=== PATIENT | male | born 1985 | race Caucasian/White ===

== ENCOUNTER 2018-03-03 02:00 | Emergency (ER) | payer OTHER, MEDICAID, SELFPAY ==
[2018-03-03 02:19] VITALS: BP 127/83; PULSE 70; RESP 16; TEMP 36.3; O2SAT 97; BMI 39.5
--- NOTE | 2018-03-03 02:51 | PC.NURSE ---
Attempted to place PIV in L hand. Unsuccessful placement, was able to obtain blood specimens but catheter would not advance. Dr. Terrell aware, agrees to PO hydration.
[2018-03-03 02:56] LABS: Add Manual Diff / Slide Review NO; Basophils Percent Auto 1.3 % (0-2); Eosinophils Percent Auto 1.4 % (2-4); Hematocrit 42.1 % (41-53); Hemoglobin 14.3 g/dL (13.5-17.5); Lymphocytes Percent Auto 31.8 % (25-40); Mean Corpuscular Hemoglobin 29.9 PG (26-34); Mean Corpuscular Volume 87.9 fL (80-100); Monocytes Percent Auto 8.5 % (3-14); Neutrophils Absolute Auto 5100 /uL (3000-5900); Platelet Count 198 X10^3/uL (150-400); Red Blood Cell Count 4.79 X10^6/uL (4.5-5.9); Red Cell Distribution Width 12.9 % (11.6-14.8)
--- NOTE | 2018-03-03 02:56 | ED.NAVMDI ---
HPI - Nausea/Vomiting/Diarrhea General Chief complaint: Nausea/Vomiting/Diarrhea Stated complaint: vomiting Time Seen by Provider: 03/03/18 02:16 Source: patient, RN notes reviewed and old records reviewed Mode of arrival: ambulatory Limitations: no limitations History of Present Illness HPI Narrative: Patient is a 32-year-old male who presents with his some vomiting. He says he vomited twice this evening once before work and once at work. He says sometimes when he stands up he gets really dizzy and lightheaded. He has not passed out he denies any chest pain or heart palpitations. He has no abdominal pain. He thinks he has been eating and drinking normally. He has not had any fever. MD complaint: nausea and vomiting Related Data Home Medications Medication Instructions Recorded Confirmed dextroamphetamine-amphetamine 20 mg PO BID #0 07/18/16 [Adderall] Previous Rx's Medication Instructions Recorded tramadol 1 mg PO Q4HP PRN #30 tab 02/16/17 varenicline [Chantix] 1 mg PO BID #60 tab 07/26/17 clonazepam 1 mg PO BIDP PRN #30 tab 09/05/17 ondansetron [Zofran ODT] 4 mg SUBLINGUAL Q6HP PRN #15 odt 09/18/17 trazodone 25 mg PO HS PRN #30 tab 10/26/17 ondansetron 4 mg PO Q6H PRN #10 tab 03/03/18 Allergies Allergy/AdvReac Type Severity Reaction Status Date / Time No Known Drug Allergies Allergy Verified 03/03/18 02:23 Review of Systems Review of Systems GENERAL: Denies chills, fatigue, malaise, fever, sweats, travel HEENT: Denies sinus pain, ear pain, sore throat, difficulty swallowing, neck pain RESPIRATORY: Denies dyspnea, cough, wheezing, hemoptysis, sputum. CARDIOVASCULAR: Denies chest pain, palpitations, orthopnea, edema GASTROINTESTINAL: See HPI : Denies dysuria, frequency, incontinence, hematuria, urinary retention, flank pain. MUSCULOSKELETAL: Denies weakness, joint pain, or bony pain SKIN: No rash, no erythema, no pruritus NEUROLOGIC: Denies weakness, dizziness, headache, numbness, change in speech, confusion PSYCHIATRIC: No concerning psychosocial issues. 12 point review of systems is negative except for those stated above and HPI All systems reviewed & are unremarkable except as noted in HPI and below PFSH Social History Smoking Status: Current every day smoker Exam Initial Vital Signs Initial Vital Signs: Vital Signs Temperature 97.4 F L 03/03/18 02:19 Pulse Rate 70 03/03/18 02:19 Respiratory Rate 16 03/03/18 02:19 Blood Pressure 127/83 H 03/03/18 02:19 Pulse Oximetry 97 03/03/18 02:19 GENERAL: Well-appearing, well-nourished and in no acute distress. HEENT: Head atraumatic,EOMI, pupils reactive CARDIOVASCULAR: Regular rate and rhythm without murmurs, rubs or gallops. RESPIRATORY: Breath sounds equal bilaterally, no wheezes rales or rhonchi. ABDOMEN: Soft, nontender. Normoactive bowel sounds all 4 quadrants. No guarding or rebound. EXTREMITIES: Normal range of motion, no clubbing or edema. Neurovascularly intact NEUROLOGICAL: Alert and oriented x4.Normal gait and speech. SKIN: Warm, dry, no laceration, no petechiae, no rashes or lesions. Course Orders Ordered: ED Orders 03/03/18 EKG-12 Lead Routine 03/03/18 02:51 Complete Blood Count AUTO DIFF Stat Comprehensive Metabolic Panel Stat Discontinued Medications Sodium Chloride (Normal Saline 0.9%) 500 mls @ 1,000 mls/hr IV BOLUS ONE Stop: 03/03/18 03:05 Vital Signs - 8 hr 03/03/18 02:19 Temperature 97.4 F L Pulse Rate 70 Respiratory Rate 16 Blood Pressure 127/83 H Pulse Oximetry 97 MDM - Nausea/Vomiting/Diarrhea Lab Data Attestation: I reviewed the patient's lab results. Result diagrams: 03/03/18 02:51 03/03/18 02:51 Lab Results 03/03/18 03/03/18 Range/Units 02:51 02:51 WBC 9.0 (4.5-11.0) X10^3/uL RBC 4.79 (4.5-5.9) X10^6/uL Hgb 14.3 (13.5-17.5) g/dL Hct 42.1 (41-53) % MCV 87.9 (80-100) fL MCH 29.9 (26-34) PG MCHC 34.0 (30-36) % RDW 12.9 (11.6-14.8) % Plt Count 198 (150-400) X10^3/uL Neut % (Auto) 57.0 (50-75) % Lymph % (Auto) 31.8 (25-40) % [place] % (Auto) 8.5 (3-14) % Eos % (Auto) 1.4 L (2-4) % Baso % (Auto) 1.3 (0-2) % Neut # (Auto) 5100 (8384-8714) /uL Sodium 142 (137-145) mmol/L Potassium 4.7 (3.4-5.1) mmol/L Chloride 110 H (98-107) mmol/L Carbon Dioxide 21 L (22-32) mmol/L BUN 14 (9-20) mg/dL Creatinine 0.80 (0.66-1.25) mg/dL Estimated GFR > 60.0 (>60) mL/min BUN/Creatinine Ratio 17.5 (6-22) Glucose 94 (70-100) mg/dL Calcium 9.1 (8.4-10.2) mg/dL Total Bilirubin 0.4 (0.2-1.3) mg/dL AST 30 (17-59) IU/L ALT 29 (21-72) IU/L Alkaline Phosphatase 47 (38-126) U/L Total Protein 6.8 (6.3-8.2) g/dL Albumin 3.8 (3.5-5.0) g/dL Globulin 3.0 (1.7-4.1) g/dL Albumin/Globulin Ratio 1.3 (1.0-2.8) ECG Data Attestation: I personally reviewed and interpreted this ECG as follows: Interpretation: Normal sinus rhythm rate 64 no acute ischemia no ST changes normal intervals MDM Narrative Medical decision making narrative: Patient is tolerating oral fluids. The no blood work at vitals within normal limits. He says he is feeling better just like to go home sleep. Discharge Plan Departure Patient Disposition: Home, Self-Care Clinical Impression: Vomiting Instructions: Nausea and Vomiting-Adult Activity Restrictions/Additional Instructions: 1) You have been diagnosed with nausea and vomiting 2) What to do: Drink frequent but small amounts of fluids. I recommend Gatorade or a Gatorade-like product, as it has small amounts of sugar and salts that improve fluid retention. 3) Take medications as directed 4) Follow up with your primary care provider in 2-3 days 5) Return to ER if you should have any new or worsening symptoms such as, unable to hold down fluids despite use of anti-nausea medications and the small volume oral rehydration strategy. Prescriptions: New ondansetron 4 mg tablet,disintegrating 4 mg PO Q6H PRN (Reason: nausea and vomiting) Qty: 10 RF: 0 No Action dextroamphetamine-amphetamine [Adderall] 20 MG tablet 20 mg PO BID Qty: 0 RF: 0 tramadol 50 MG tablet 1 mg PO Q4HP PRNQty: 30 RF: 3 varenicline [Chantix] 1 MG tablet 1 mg PO BID Qty: 60 RF: 2 clonazepam 0.5 MG tablet 1 mg PO BIDP PRNQty: 30 RF: 3 ondansetron [Zofran ODT] 4 MG tablet,disintegrating 4 mg Sublingual Q6HP PRNQty: 15 RF: 0 trazodone 50 MG tablet 25 mg PO HS PRNQty: 30 RF: 2 Referrals: [facility] [Provider Group] [facility] [Provider Group] [facility] [Provider Group] Stand Alone Forms: Work/School Restrictions
[2018-03-03 03:05] LABS: Alanine Aminotransferase 29 IU/L (21-72); Albumin 3.8 g/dL (3.5-5.0); Albumin Globulin Ratio 1.3 (1.0-2.8); Alkaline Phosphatase 47 U/L (38-126); Aspartate Aminotransferase 30 IU/L (17-59); BUN Creatinine Ratio 17.5 (6-22); Bilirubin Total 0.4 mg/dL (0.2-1.3); Blood Urea Nitrogen 14 mg/dL (9-20); Calcium 9.1 mg/dL (8.4-10.2); Carbon Dioxide 21 mmol/L (22-32); Chloride 110 mmol/L (98-107); Estimated Glomerular Filt Rate > 60.0 mL/min (>60); Glucose 94 mg/dL (70-100); Sodium 142 mmol/L (137-145); Total Protein 6.8 g/dL (6.3-8.2)
[2018-03-03 03:07] LABS: HEMOLYSIS 78 (0-50)
[2018-03-03 03:08] LABS: Potassium 4.7 mmol/L (3.4-5.1)
[2018-03-03 03:19] VITALS: BP 123/84; PULSE 58; RESP 18; TEMP 36.3; O2SAT 96
== END 2018-03-03 03:19 | disposition home or self-care (01) ==
PROVIDERS: Emergency Provider Emergency Medicine
DX: R11.10 Vomiting, unspecified (principal)
CPT/HCPCS: 80053; 82962; 85025; 93005; 99282; 99284

== ENCOUNTER 2018-03-30 17:19 | Emergency (ER) | payer OTHER, MEDICAID, SELFPAY ==
[2018-03-30 17:23] VITALS: BP 123/80; PULSE 66; RESP 20; TEMP 36.1; O2SAT 97; BMI 38.7
--- NOTE | 2018-03-30 18:58 | ED_ITS ---
HPI - Extremity Problem <Lien Mahmood PA-C - Last Filed: 03/30/18 21:49> General Chief complaint: Extremity Problem,Nontraumatic Stated complaint: RT FOOT PAIN Time Seen by Provider: 03/30/18 18:57 Source: patient Mode of arrival: ambulatory Limitations: no limitations History of Present Illness HPI Narrative: This 32-year-old male comes to the ED today complaining of 2 day history of right foot pain which is causing him to limp. He states that pain is only on the bottom of his foot, mostly in the back half of the foot, worse with bearing any weight or walking. Worse with initially standing after sitting for a bit. He denies any trauma at all, no wounds or punctures. He states the foot has not been swollen. He has not noted any swelling or fever. He has not had pain in the ankle or any joints. He is on his feet all night for work and does not think he can stand and walk all night due to the pain. Related Data Home Medications Medication Instructions Recorded Confirmed dextroamphetamine-amphetamine 20 mg PO BID #0 07/18/16 [Adderall] Previous Rx's Medication Instructions Recorded tramadol 1 mg PO Q4HP PRN #30 tab 02/16/17 varenicline [Chantix] 1 mg PO BID #60 tab 07/26/17 clonazepam 1 mg PO BIDP PRN #30 tab 09/05/17 ondansetron [Zofran ODT] 4 mg SUBLINGUAL Q6HP PRN #15 odt 09/18/17 trazodone 25 mg PO HS PRN #30 tab 10/26/17 ondansetron 4 mg PO Q6H PRN #10 tab 03/03/18 Allergies Allergy/AdvReac Type Severity Reaction Status Date / Time No Known Drug Allergies Allergy Verified 03/03/18 02:23 Review of Systems <Lien Mahmood PA-C - Last Filed: 03/30/18 21:49> Review of Systems All systems reviewed & are unremarkable except as noted in HPI and below Exam <Lien Mahmood PA-C - Last Filed: 03/30/18 21:49> Narrative Exam Narrative: GENERAL APPEARANCE: Patient sitting comfortably, in no distress. LUNGS: Clear to auscultation bilaterally. HEART: Rate and rhythm regular without murmur, normal S1 and S2, no S3 or S4. EXTREMITIES: No cyanosis, no edema, no calf tenderness MUSCULOSKELETAL: Right drawing frame tender to touch from the heel aponeurosis distal. No tenderness over the dorsum of the foot or bony prominences. No tenderness over the ankle. Full range of motion of the ankle and toes without tenderness nonweightbearing, however with weight-bearing he ambulates with a limp. Initial Vital Signs Initial Vital Signs: Vital Signs Temperature 97.0 F L 03/30/18 17:23 Pulse Rate 66 03/30/18 17:23 Respiratory Rate 20 03/30/18 17:23 Blood Pressure 123/80 H 03/30/18 17:23 Pulse Oximetry 97 03/30/18 17:23 <Dorian Michael DO - Last Filed: 03/31/18 05:00> Initial Vital Signs Initial Vital Signs: Vital Signs Temperature 97.0 F L 03/30/18 17:23 Pulse Rate 66 03/30/18 17:23 Respiratory Rate 20 03/30/18 17:23 Blood Pressure 123/80 H 03/30/18 17:23 Pulse Oximetry 97 03/30/18 17:23 Course <Lien Mahmood PA-C - Last Filed: 03/30/18 21:49> Vital Signs - 8 hr 03/30/18 17:23 03/30/18 19:35 Temperature 97.0 F L 97.3 F L Pulse Rate 66 59 L Respiratory Rate 20 18 Blood Pressure 123/80 H 135/88 H Pulse Oximetry 97 98 <Dorian Michael DO - Last Filed: 03/31/18 05:00> Vital Signs - 8 hr 03/30/18 17:23 03/30/18 19:35 Temperature 97.0 F L 97.3 F L Pulse Rate 66 59 L Respiratory Rate 20 18 Blood Pressure 123/80 H 135/88 H Pulse Oximetry 97 98 Discharge Plan Departure Patient Disposition: Home, Self-Care Clinical Impression: Plantar fasciitis Discharge Date/Time: 03/30/18 19:30 Interventions: ED Discharge Assessment Last Done: 03/30/18 19:35 Instructions: DI for Plantar Fasciitis Activity Restrictions/Additional Instructions: You can try taking ibuprofen every 8 hr for pain. See the website heelthatpain.CardiOx as they have very good exercises for this condition. To help with relief, you can roll your foot over a frozen water bottle or soup can, and also do the exercises you see on the web site. Their heel seats can be very helpful also, or you can try some insoles from the drugstore. Wear supportive shoes. This condition takes a long time to get better, so make sure you continue to treated. You can also see 1 of the podiatrists, I have given you their local number at [facility]. Prescriptions: No Action dextroamphetamine-amphetamine [Adderall] 20 MG tablet 20 mg PO BID Qty: 0 RF: 0 tramadol 50 MG tablet 1 mg PO Q4HP PRNQty: 30 RF: 3 varenicline [Chantix] 1 MG tablet 1 mg PO BID Qty: 60 RF: 2 clonazepam 0.5 MG tablet 1 mg PO BIDP PRNQty: 30 RF: 3 ondansetron [Zofran ODT] 4 MG tablet,disintegrating 4 mg Sublingual Q6HP PRNQty: 15 RF: 0 trazodone 50 MG tablet 25 mg PO HS PRNQty: 30 RF: 2 ondansetron 4 mg tablet,disintegrating 4 mg PO Q6H PRN (Reason: nausea and vomiting) Qty: 10 RF: 0 Referrals: [facility] [Provider Group] Stand Alone Forms: Work/School Restrictions <Dorian Michael DO - Last Filed: 03/31/18 05:00> [facility]ending Regla Attestation: I was immediately available in the department for consultation. Documentation has been reviewed. I agree with assessment and plan.
[2018-03-30 19:35] VITALS: BP 135/88; PULSE 59; RESP 18; TEMP 36.3; O2SAT 98
== END 2018-03-30 19:30 | disposition home or self-care (01) ==
PROVIDERS: Emergency Provider Internal Medicine
DX: M72.2 Plantar fascial fibromatosis (principal)
CPT/HCPCS: 99282; 99283

== ENCOUNTER 2018-06-02 11:11 | Emergency (ER) | payer OTHER, MEDICAID, SELFPAY ==
[2018-06-02 11:24] VITALS: BP 98/54; PULSE 88; RESP 16; TEMP 36.6; O2SAT 94
[2018-06-02] MEDS: ONDANSETRON 4 MG/2 ML INJ IV (11:58)
[2018-06-02 12:06] LABS: Add Manual Diff / Slide Review NO; Basophils Percent Auto 0.7 % (0-2); Eosinophils Percent Auto 0.8 % (2-4); Hematocrit 45.2 % (41-53); Hemoglobin 15.5 g/dL (13.5-17.5); Lymphocytes Percent Auto 31.7 % (25-40); Mean Corpuscular HGB Conc 34.2 % (30-36); Mean Corpuscular Volume 87.6 fL (80-100); Monocytes Percent Auto 6.6 % (3-14); Neutrophils Absolute Auto 6900 /uL (3000-5900); Neutrophils Percent Auto 60.2 % (50-75); Platelet Count 207 X10^3/uL (150-400); Red Blood Cell Count 5.15 X10^6/uL (4.5-5.9); Red Cell Distribution Width 13.2 % (11.6-14.8); White Blood Cell Count 11.5 X10^3/uL (4.5-11.0)
[2018-06-02 12:12] LABS: Prothrombin Time 10.9 SECONDS (10.1-12.7)
[2018-06-02 12:13] LABS: Alanine Aminotransferase 38 IU/L (21-72); Albumin 4.4 g/dL (3.5-5.0); Albumin Globulin Ratio 1.5 (1.0-2.8); Alkaline Phosphatase 61 U/L (38-126); Aspartate Aminotransferase 45 IU/L (17-59); BUN Creatinine Ratio 12.2 (6-22); Bilirubin Total 0.5 mg/dL (0.2-1.3); Blood Urea Nitrogen 11 mg/dL (9-20); Calcium 9.5 mg/dL (8.4-10.2); Carbon Dioxide 24 mmol/L (22-32); Chloride 107 mmol/L (98-107); Estimated Glomerular Filt Rate > 60.0 mL/min (>60); Glucose 131 mg/dL (70-100); Lipase 69 U/L (23-300); Potassium 4.5 mmol/L (3.4-5.1); Sodium 141 mmol/L (137-145); Total Protein 7.4 g/dL (6.3-8.2)
[2018-06-02 12:15] LABS: PTT Partial Thromboplastin Tim 26 SECONDS (26.4-36.2)
[2018-06-02 12:18] LABS: HEMOLYSIS 58 (0-50)
[2018-06-02 12:30] VITALS: BP 109/63; PULSE 63; RESP 16; O2SAT 99
--- NOTE | 2018-06-02 12:46 | ED_ITS ---
HPI - Nausea/Vomiting/Diarrhea <SP Vick - Last Filed: 06/02/18 16:17> General Chief complaint: Nausea/Vomiting/Diarrhea Stated complaint: nausea / vomiting. Time Seen by Provider: 06/02/18 12:16 Source: patient and family Mode of arrival: EMS Limitations: no limitations History of Present Illness HPI Narrative: Patient presents with chief complaint of generalized weakness, nausea and vomiting. Per report he was working his [employer], went outside to lay down and smoke a cigarette. He had sudden onset of fatigue, so his boss reportedly called 911. Per report patient was able to ambulate to the ambulance. He had sudden onset of nausea vomiting in the ambulance and vomited x1 largely. Upon my interview, patient is lying in bed on his side. He denies any abdominal pain, nausea vomiting diarrhea or fevers. He states his last bowel movement was yesterday. He denies any chest pain, shortness of breath, sore throat, ear pain. He does complains of severe fatigue and diffuse abdominal pain. His is at his bedside and notes that the patient has a very poor diet, eating on the [facility] in [facility]. She states he drinks soda by the [employer]. she states he has had approximately 6 Energy drinks so far today. Patient denies hitting his head, denies falls, denies trauma Related Data Home Medications Medication Instructions Recorded Confirmed dextroamphetamine-amphetamine 20 mg PO BID #0 07/18/16 06/03/18 [Adderall] Previous Rx's Medication Instructions Recorded tramadol 1 mg PO Q4HP PRN #30 tab 02/16/17 varenicline [Chantix] 1 mg PO BID #60 tab 07/26/17 clonazepam 1 mg PO BIDP PRN #30 tab 09/05/17 trazodone 25 mg PO HS PRN #30 tab 10/26/17 ondansetron 4 mg disintegrating 4 mg PO DAILY PRN #20 tab 06/03/18 tablet Allergies Allergy/AdvReac Type Severity Reaction Status Date / Time No Known Drug Allergies Allergy Verified 06/03/18 15:06 Review of Systems <SP Vick - Last Filed: 06/02/18 16:17> Review of Systems GENERAL: Denies chills, fatigue, malaise, fever, sweats. HEENT: Denies sinus pain, ear pain, sore throat, difficulty swallowing, dizziness. RESPIRATORY: Denies dyspnea, cough, wheezing, hemoptysis, sputum. CARDIOVASCULAR: Denies chest pain, palpitations, orthopnea, edema, GASTROINTESTINAL: see HPI : Denies dysuria, frequency, incontinence, hematuria, urinary retention. MUSCULOSKELETAL: denies weakness, joint pain, or bony pain SKIN: Denies rash, skin lesions, or other NEUROLOGIC: see HPI PSYCHIATRIC: No concerning psychosocial issues. 12 point review of systems is negative except for those stated above Exam <SHANNAN VickBC - Last Filed: 06/02/18 16:17> Narrative Exam Narrative: GENERAL: This is a well-nourished, well-developed patient, in mild distress. HEAD: Atraumatic. Normocephalic. No temporal or scalp tenderness. EYES: Pupils equal round and reactive. Extraocular motions intact. No scleral icterus. No injection or drainage. ENT: Nose without bleeding, purulent drainage or septal hematoma. Throat without erythema, tonsillar hypertrophy or exudate. Uvula midline. Airway patent. NECK: Trachea midline. No JVD or lymphadenopathy. Supple, nontender, no meningeal signs. CARDIOVASCULAR: Regular rate and rhythm without murmurs, gallops, or rubs. RESPIRATORY: Clear to auscultation. Breath sounds equal bilaterally. No wheezes , rales, or rhonchi. GASTROINTESTINAL: Abdomen soft Obese, diffusely tender, nondistended. No hepato-splenomegaly, or palpable masses. No guarding. active bowel sounds all quadrants. No rigidity. EXTREMITIES: No clubbing, cyanosis, or edema. No joint tenderness, effusion, or edema noted. BACK: Nontender without deformity or crepitance. No flank tenderness. NEURO: lethargic. Ox3. SKIN: No rash or erythema. Initial Vital Signs Initial Vital Signs: Vital Signs Temperature 97.8 F 06/02/18 11:24 Pulse Rate 88 06/02/18 11:24 Respiratory Rate 16 06/02/18 11:24 Blood Pressure 98/54 L 06/02/18 11:24 Pulse Oximetry 94 06/02/18 11:24 <Monika Gill DO - Last Filed: 06/06/18 18:59> Initial Vital Signs Initial Vital Signs: Vital Signs Temperature 97.8 F 06/02/18 11:24 Pulse Rate 88 06/02/18 11:24 Respiratory Rate 16 06/02/18 11:24 Blood Pressure 98/54 L 06/02/18 11:24 Pulse Oximetry 94 06/02/18 11:24 Course <KYLE Vick-BC - Last Filed: 06/02/18 16:17> Orders Ordered: Discontinued Medications Sodium Chloride (Normal Saline 0.9%) 1,000 mls @ 1,000 mls/hr IV BOLUS ONE Stop: 06/02/18 13:37 Last Infusion: 06/02/18 13:53 Dose: 0 mls/hr Admin: 06/02/18 12:58 Dose: 1,000 mls/hr Sodium Chloride (Normal Saline 0.9%) 1,000 mls @ 1,000 mls/hr IV BOLUS ONE Stop: 06/02/18 14:42 Last Infusion: 06/02/18 15:06 Dose: 0 mls/hr Admin: 06/02/18 13:53 Dose: 1,000 mls/hr Ondansetron HCl (Zofran) 4 mg IV NOW ONE Stop: 06/02/18 11:38 Last Admin: 06/02/18 11:58 Dose: 4 mg Reevaluation(s) Reevaluation #1: Patient states he is feeling much better. States his abdomen is feeling much better. no pain to abd palpation. Time: 13:30 Reevaluation #2: Patient is steady to ambulate. Out of bed to bathroom here states he is feeling much better wants to go home. Patient declines nausea medication upon discharge. Time: 14:45 Vital Signs - 8 hr 06/02/18 11:24 06/02/18 12:30 06/02/18 13:30 Temperature 97.8 F Pulse Rate 88 63 58 L Respiratory Rate 16 16 Blood Pressure 98/54 L Blood Pressure [Right Arm] 109/63 92/48 L Pulse Oximetry 94 99 96 06/02/18 14:35 Temperature Pulse Rate 79 Respiratory Rate Blood Pressure Blood Pressure [Right Arm] 117/66 Pulse Oximetry 98 <Monika Gill DO - Last Filed: 06/06/18 18:59> Orders Ordered: Discontinued Medications Sodium Chloride (Normal Saline 0.9%) 1,000 mls @ 1,000 mls/hr IV BOLUS ONE Stop: 06/02/18 13:37 Last Infusion: 06/02/18 13:53 Dose: 0 mls/hr Admin: 06/02/18 12:58 Dose: 1,000 mls/hr Sodium Chloride (Normal Saline 0.9%) 1,000 mls @ 1,000 mls/hr IV BOLUS ONE Stop: 06/02/18 14:42 Last Infusion: 06/02/18 15:06 Dose: 0 mls/hr Admin: 06/02/18 13:53 Dose: 1,000 mls/hr Ondansetron HCl (Zofran) 4 mg IV NOW ONE Stop: 06/02/18 11:38 Last Admin: 06/02/18 11:58 Dose: 4 mg Vital Signs - 8 hr 06/02/18 11:24 06/02/18 12:30 06/02/18 13:30 Temperature 97.8 F Pulse Rate 88 63 58 L Respiratory Rate 16 16 Blood Pressure 98/54 L Blood Pressure [Right Arm] 109/63 92/48 L Pulse Oximetry 94 99 96 06/02/18 14:35 Temperature Pulse Rate 79 Respiratory Rate Blood Pressure Blood Pressure [Right Arm] 117/66 Pulse Oximetry 98 MDM - Nausea/Vomiting/Diarrhea <KYLE Vick-BC - Last Filed: 06/02/18 16:17> Lab Data Result diagrams: 06/02/18 11:55 06/02/18 11:55 Lab Results 06/02/18 06/02/18 06/02/18 Range/Units 11:55 11:55 11:55 WBC 11.5 H (4.5-11.0) X10^3/uL RBC 5.15 (4.5-5.9) X10^6/uL Hgb 15.5 (13.5-17.5) g/dL Hct 45.2 (41-53) % MCV 87.6 (80-100) fL MCH 30.0 (26-34) PG MCHC 34.2 (30-36) % RDW 13.2 (11.6-14.8) % Plt Count 207 (150-400) X10^3/uL Neut % (Auto) 60.2 (50-75) % Lymph % (Auto) 31.7 (25-40) % [place] % (Auto) 6.6 (3-14) % Eos % (Auto) 0.8 L (2-4) % Baso % (Auto) 0.7 (0-2) % Neut # (Auto) 6900 H (1616-8981) /uL PT 10.9 (10.1-12.7) SECONDS INR 1.0 (0.9-1.3) APTT 26 L (26.4-36.2) SECONDS Sodium 141 (137-145) mmol/L Potassium 4.5 (3.4-5.1) mmol/L Chloride 107 (98-107) mmol/L Carbon Dioxide 24 (22-32) mmol/L BUN 11 (9-20) mg/dL Creatinine 0.90 (0.66-1.25) mg/dL Estimated GFR > 60.0 (>60) mL/min BUN/Creatinine Ratio 12.2 (6-22) Glucose 131 H (70-100) mg/dL Calcium 9.5 (8.4-10.2) mg/dL Total Bilirubin 0.5 (0.2-1.3) mg/dL AST 45 (17-59) IU/L ALT 38 (21-72) IU/L Alkaline Phosphatase 61 (38-126) U/L Total Protein 7.4 (6.3-8.2) g/dL Albumin 4.4 (3.5-5.0) g/dL Globulin 3.0 (1.7-4.1) g/dL Albumin/Globulin Ratio 1.5 (1.0-2.8) Lipase 69 (23-300) U/L Urine Dip Bedside Urine Glucose Negative Bedside Urine Bilirubin - Negative Bedside Urine Ketone - Negative Urine Specific [place] 1.020 Bedside Urine Occult Blood - Negative Bedside Urine pH 6.0 Bedside Urine Protein - Negative Bedside Urine Urobilinogen - Negative Bedside Urine Nitrite - Negative Bedside Urine Leukocytes - Negative Esterase MDM Narrative Medical decision making narrative: Patient presents with chief complaint of fatigue, sudden onset of nausea and vomiting. His labs are grossly normal emergency department. He felt much better after 2 L of normal saline being infused. His abdominal exam is within normal limits and his vital signs are hemodynamically stable. I discussed at length healthy lifestyle including less energy drinks and eating healthy foods. I offered the patient nausea medication upon discharge, but he declined. He did ask for a work note which I gave him. Discussed at length return precautions to the emergency department including fever, syncope, sudden abdominal pain except her. Patient under questions or concerns upon discharge and stated understanding of all instructions. <Monika Shepherd Jairo, - Last Filed: 06/06/18 18:59> Lab Data Lab Results 06/02/18 06/02/18 06/02/18 Range/Units 11:55 11:55 11:55 WBC 11.5 H (4.5-11.0) X10^3/uL RBC 5.15 (4.5-5.9) X10^6/uL Hgb 15.5 (13.5-17.5) g/dL Hct 45.2 (41-53) % MCV 87.6 (80-100) fL MCH 30.0 (26-34) PG MCHC 34.2 (30-36) % RDW 13.2 (11.6-14.8) % Plt Count 207 (150-400) X10^3/uL Neut % (Auto) 60.2 (50-75) % Lymph % (Auto) 31.7 (25-40) % [place] % (Auto) 6.6 (3-14) % Eos % (Auto) 0.8 L (2-4) % Baso % (Auto) 0.7 (0-2) % Neut # (Auto) 6900 H (1714-5322) /uL PT 10.9 (10.1-12.7) SECONDS INR 1.0 (0.9-1.3) APTT 26 L (26.4-36.2) SECONDS Sodium 141 (137-145) mmol/L Potassium 4.5 (3.4-5.1) mmol/L Chloride 107 (98-107) mmol/L Carbon Dioxide 24 (22-32) mmol/L BUN 11 (9-20) mg/dL Creatinine 0.90 (0.66-1.25) mg/dL Estimated GFR > 60.0 (>60) mL/min BUN/Creatinine Ratio 12.2 (6-22) Glucose 131 H (70-100) mg/dL Calcium 9.5 (8.4-10.2) mg/dL Total Bilirubin 0.5 (0.2-1.3) mg/dL AST 45 (17-59) IU/L ALT 38 (21-72) IU/L Alkaline Phosphatase 61 (38-126) U/L Total Protein 7.4 (6.3-8.2) g/dL Albumin 4.4 (3.5-5.0) g/dL Globulin 3.0 (1.7-4.1) g/dL Albumin/Globulin Ratio 1.5 (1.0-2.8) Lipase 69 (23-300) U/L Urine Dip Bedside Urine Glucose Negative Bedside Urine Bilirubin - Negative Bedside Urine Ketone - Negative Urine Specific [place] 1.020 Bedside Urine Occult Blood - Negative Bedside Urine pH 6.0 Bedside Urine Protein - Negative Bedside Urine Urobilinogen - Negative Bedside Urine Nitrite - Negative Bedside Urine Leukocytes - Negative Esterase Discharge Plan Departure Patient Disposition: Home Clinical Impression: Nausea & vomiting, Fatigue Discharge Date/Time: 06/02/18 15:40 Interventions: ED Discharge Assessment Last Done: 06/02/18 15:39 Instructions: DI for Fatigue, DI for Nausea -- Adult, DI for Vomiting -- Adult Activity Restrictions/Additional Instructions: Your lab work came back grossly normal today. Please follow-up with primary care provider if needed or not feeling any better. I have given you few days off of work. you have declined a nausea prescription today. I highly suggest a healthy diet, drinking water, not drinking as many energy drinks. Please come back to the emergency department if needed. Prescriptions: No Action ondansetron 4 mg tablet,disintegrating 4 mg PO DAILY PRN (Reason: nausea and vomiting) Qty: 20 RF: 0 dextroamphetamine-amphetamine [Adderall] 20 MG tablet 20 mg PO BID Qty: 0 RF: 0 tramadol 50 MG tablet 1 mg PO Q4HP PRNQty: 30 RF: 3 varenicline [Chantix] 1 MG tablet 1 mg PO BID Qty: 60 RF: 2 clonazepam 0.5 MG tablet 1 mg PO BIDP PRNQty: 30 RF: 3 trazodone 50 MG tablet 25 mg PO HS PRNQty: 30 RF: 2 Stand Alone Forms: Work/School Restrictions <Monika Gill DO - Last Filed: 06/06/18 18:59> Cosign ED Attending Cosmuature Attestation: I was immediately available in the department for consultation. This documentation has been reviewed and I agree with assessment and plan. Supervised by Monika Gill DO
[2018-06-02] MEDS: SODIUM CHLORIDE 0.9% 1,000 ML 1000 ML IV ×2 (12:58→13:53)
[2018-06-02 13:30] VITALS: BP 92/48; PULSE 58; O2SAT 96
[2018-06-02 14:35] VITALS: BP 117/66; PULSE 79; O2SAT 98
== END 2018-06-02 15:40 | disposition home or self-care (01) ==
PROVIDERS: Emergency Medicine; Emergency Provider Nurse Practitioner Family
DX: R11.2 Nausea with vomiting, unspecified (principal); R53.83 Other fatigue
CPT/HCPCS: 36591; 80053; 81003; 83690; 85025; 85610; 85730; 96361; 96374; 99283; 99284; J2405

== ENCOUNTER 2018-12-16 04:14 | Emergency (ER) | payer OTHER, MEDICAID, SELFPAY ==
--- NOTE | 2018-12-16 04:40 | ED.NECK ---
HPI - Neck Pain/Injury General Chief Complaint: Neck Pain/Injury Stated Complaint: neck pain through shoulder hurts to turn neck Time Seen by Provider: 12/16/18 04:18 Source: patient Mode of arrival: ambulatory Limitations: no limitations History of Present Illness HPI Narrative: The patient is a 33-year-old male who presents with neck pain on the right. He was moving a mattress yesterday he took ibuprofen when he fell to happen however he still has pain he is unable to move his neck or move lift his arm. He sometimes has some tingling and numbness in his right arm. MD complaint: neck pain and neck injury Onset (ago): day(s) Related Data Home Medications Medication Instructions Recorded Confirmed dextroamphetamine-amphetamine 20 mg PO BID #0 07/18/16 06/03/18 [Adderall] Previous Rx's Medication Instructions Recorded tramadol 1 mg PO Q4HP PRN #30 tab 02/16/17 varenicline [Chantix] 1 mg PO BID #60 tab 07/26/17 clonazepam 1 mg PO BIDP PRN #30 tab 09/05/17 trazodone 25 mg PO HS PRN #30 tab 10/26/17 ondansetron 4 mg disintegrating 4 mg PO DAILY PRN #20 tab 06/03/18 tablet cyclobenzaprine 5 mg PO TID PRN #10 tab 12/16/18 Allergies Allergy/AdvReac Type Severity Reaction Status Date / Time No Known Drug Allergies Allergy Verified 06/03/18 15:06 Review of Systems Review of Systems GENERAL: Denies chills, fatigue, malaise, fever, sweats, travel HEENT: Denies sinus pain, ear pain, sore throat, difficulty swallowing, neck pain RESPIRATORY: Denies dyspnea, cough, wheezing, hemoptysis, sputum. CARDIOVASCULAR: Denies chest pain, palpitations, orthopnea, edema GASTROINTESTINAL: Denies nausea, vomiting, abdominal pain, diarrhea, constipation, melena. : Denies dysuria, frequency, incontinence, hematuria, urinary retention, flank pain. MUSCULOSKELETAL: See HPI SKIN: No rash, no erythema, no pruritus NEUROLOGIC: Denies weakness, dizziness, headache, numbness, change in speech, confusion PSYCHIATRIC: No concerning psychosocial issues. 12 point review of systems is negative except for those stated above and HPI [facility] Medical History (Updated 12/16/18 @ 04:54 by Neena Terrell DO) ADHD (Chronic) Social History Smoking Status: Current every day smoker Social History Smoking Status: Current every day smoker Exam Initial Vital Signs Initial Vital Signs: Vital Signs Temperature 97.7 F 12/16/18 04:51 Pulse Rate 74 12/16/18 04:51 Respiratory Rate 14 12/16/18 04:51 Blood Pressure 134/90 12/16/18 04:51 Pulse Oximetry 96 12/16/18 04:51 GENERAL: [Well-appearing, well-nourished] and in [no acute] distress. HEENT: Head atraumatic,EOMI, pupils reactive, NECK: No vertebral tenderness he is tender on the paraspinal muscles right side CARDIOVASCULAR: Regular rate and rhythm without murmurs, rubs or gallops. RESPIRATORY: Breath sounds equal bilaterally, no wheezes rales or rhonchi. EXTREMITIES: Normal range of motion, no clubbing or edema. Neurovascularly intact NEUROLOGICAL: Alert and oriented x4.Normal gait and speech. Cranial nerves II through XII grossly intact. 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 Course Orders Ordered: Discontinued Medications Al Hydrox/Mg Hydrox/Simethicone 20 ml/ Lidocaine HCl 15 ml 0 ml PO NOW ONE Stop: 12/16/18 05:33 Cyclobenzaprine HCl (Flexeril 10 Mg Prepack) 1 bottle MISC SEEINSTR ONE Stop: 12/16/18 04:48 Last Admin: 12/16/18 05:00 Dose: 1 bottle Ketorolac Tromethamine (Toradol) 60 mg IM NOW ONE Stop: 12/16/18 04:48 Last Admin: 12/16/18 04:59 Dose: 60 mg Vital Signs - 8 hr 12/16/18 04:51 12/16/18 05:34 Temperature 97.7 F Pulse Rate 74 72 Respiratory Rate 14 15 Blood Pressure 134/90 123/90 Pulse Oximetry 96 99 Discharge Plan Departure Patient Disposition: Home Clinical Impression: Cervical strain Qualifiers: Encounter type: initial encounter Qualified Code(s): S16.1XXA - Strain of muscle, fascia and tendon at neck level, initial encounter Discharge Date/Time: 12/16/18 05:35 Interventions: ED Discharge Assessment Last Done: 12/16/18 05:34 Instructions: DI for Neck Sprain Activity Restrictions/Additional Instructions: *You have been diagnosed with cervical strain *What to do: Increase activity as tolerated. Light stretching encouraged. Heating *Continue to take medications as directed Ibuprofen 800 mg every 8 hours for 1 week if needed for pain Flexeril 5 mg every 8 hours if needed for muscle spasm *Follow up with your primary care provider in 2-3 days --> sent to [facility] *Return to ER if you should have increasing neck pain, numbness, tingling or any new, worsening or concerning symptoms Prescriptions: New cyclobenzaprine 5 mg tablet 5 mg PO TID PRN (Reason: muscle spasm) Qty: 10 RF: 0 No Action ondansetron 4 mg tablet,disintegrating 4 mg PO DAILY PRN (Reason: nausea and vomiting) Qty: 20 RF: 0 dextroamphetamine-amphetamine [Adderall] 20 MG tablet 20 mg PO BID Qty: 0 RF: 0 tramadol 50 MG tablet 1 mg PO Q4HP PRNQty: 30 RF: 3 varenicline [Chantix] 1 MG tablet 1 mg PO BID Qty: 60 RF: 2 clonazepam 0.5 MG tablet 1 mg PO BIDP PRNQty: 30 RF: 3 trazodone 50 MG tablet 25 mg PO HS PRNQty: 30 RF: 2 Stand Alone Forms: Work Release Note
[2018-12-16 04:51] VITALS: BP 134/90; PULSE 74; RESP 14; TEMP 36.5; O2SAT 96; BMI 39.5
[2018-12-16] MEDS: KETOROLAC 60 MG/2 ML VIAL IM (04:59)
[2018-12-16] MEDS: CYCLOBENZAPRINE 10 MG PREPACK 1 BOTTLE MISC (05:00)
[2018-12-16 05:34] VITALS: BP 123/90; PULSE 72; RESP 15; O2SAT 99
== END 2018-12-16 05:35 | disposition home or self-care (01) ==
PROVIDERS: Emergency Provider Emergency Medicine
DX: S16.1XXA Strain of muscle, fascia and tendon at neck level, initial encounter (principal); M25.511 Pain in right shoulder; R20.0 Anesthesia of skin
CPT/HCPCS: 96372; 99282; 99283; J1885

== ENCOUNTER 2018-12-20 04:39 | Emergency (ER) | payer OTHER, MEDICAID, SELFPAY ==
[2018-12-20 04:48] VITALS: BP 118/80; PULSE 76; RESP 18; TEMP 36.6; O2SAT 98; BMI 39.5
--- NOTE | 2018-12-20 04:50 | ED_ITS ---
HPI - Abdominal Pain General Chief Complaint: Nausea/Vomiting/Diarrhea Stated Complaint: NAUSEA/COLD SWEATS X1 DAY Time Seen by Provider: 12/20/18 04:45 Source: patient and old records reviewed Mode of arrival: ambulatory Limitations: no limitations History of Present Illness HPI narrative: Patient is a 33-year-old male who presents with some nausea and abdominal discomfort. He says he was doing well yesterday this morning he woke up feeling nauseous this morning. He denies vomiting. feeling like he is going to have diarrhea has not actually had any bowel movement. Has some increased abdominal sounds but no real pain. He has not had any fever. He has actually seen evaluated here just the other day for some shoulder and neck strain. He has not taken any ibuprofen since noon yesterday he says that is overall feeling better. He is no longer taking the Flexeril either. MD complaint: abdominal pain Location: diffuse Related Data Home Medications Medication Instructions Recorded Confirmed dextroamphetamine-amphetamine 20 mg PO BID #0 07/18/16 06/03/18 [Adderall] Previous Rx's Medication Instructions Recorded tramadol 1 mg PO Q4HP PRN #30 tab 02/16/17 varenicline [Chantix] 1 mg PO BID #60 tab 07/26/17 clonazepam 1 mg PO BIDP PRN #30 tab 09/05/17 trazodone 25 mg PO HS PRN #30 tab 10/26/17 ondansetron 4 mg disintegrating 4 mg PO DAILY PRN #20 tab 06/03/18 tablet cyclobenzaprine 5 mg PO TID PRN #10 tab 12/16/18 ondansetron 4 mg PO Q6-8H PRN #10 tab 12/20/18 Allergies Allergy/AdvReac Type Severity Reaction Status Date / Time No Known Drug Allergies Allergy Verified 06/03/18 15:06 Review of Systems Review of Systems GENERAL: Denies chills, fatigue, malaise, fever, sweats, travel HEENT: Denies sinus pain, ear pain, sore throat, difficulty swallowing, neck pain RESPIRATORY: Denies dyspnea, cough, wheezing, hemoptysis, sputum. CARDIOVASCULAR: Denies chest pain, palpitations, orthopnea, edema GASTROINTESTINAL: See HPI : Denies dysuria, frequency, incontinence, hematuria, urinary retention, flank pain. MUSCULOSKELETAL: Shoulder and neck pain improving, see HPI SKIN: No rash, no erythema, no pruritus NEUROLOGIC: Denies weakness, dizziness, headache, numbness, change in speech, confusion PSYCHIATRIC: No concerning psychosocial issues. 12 point review of systems is negative except for those stated above and HPI [facility] Medical History ADHD (Chronic) Social History Smoking Status: Current every day smoker Social History Smoking Status: Current every day smoker Exam Initial Vital Signs Initial Vital Signs: Vital Signs Temperature 98 F 12/20/18 04:48 Pulse Rate 76 12/20/18 04:48 Respiratory Rate 18 12/20/18 04:48 Blood Pressure 118/80 12/20/18 04:48 Pulse Oximetry 98 12/20/18 04:48 GENERAL: Well-appearing, well-nourished and in no acute distress. HEENT: Head atraumatic,EOMI, pupils reactive, face symmetric, moist mucous membranes, neck is supple no meningeal signs CARDIOVASCULAR: Regular rate and rhythm without murmurs, rubs or gallops. RESPIRATORY: Breath sounds equal bilaterally, no wheezes rales or rhonchi. ABDOMEN: Soft, nontender. Normoactive bowel sounds all 4 quadrants. No guarding or rebound. EXTREMITIES: Normal range of motion, no clubbing or edema. Neurovascularly intact NEUROLOGICAL: Alert and oriented x4.Normal gait and speech. Cranial nerves II through XII grossly intact. SKIN: Warm, dry, no laceration, no petechiae, no rashes or lesions. Course Orders Ordered: ED Orders 12/20/18 05:00 Complete Blood Count AUTO DIFF Stat Comprehensive Metabolic Panel Stat Lipase Stat Discontinued Medications Ketorolac Tromethamine (Toradol) 30 mg IV NOW ONE Stop: 12/20/18 04:51 Last Admin: 12/20/18 05:04 Dose: 30 mg Ondansetron HCl (Zofran) 4 mg IV NOW ONE Stop: 12/20/18 04:51 Last Admin: 12/20/18 05:03 Dose: 4 mg Vital Signs - 8 hr 12/20/18 04:48 Temperature 98 F Pulse Rate 76 Respiratory Rate 18 Blood Pressure 118/80 Pulse Oximetry 98 MDM - Abdominal Pain Lab Data Attestation: I reviewed the patient's lab results. Result diagrams: 12/20/18 05:00 12/20/18 05:00 Lab Results 12/20/18 12/20/18 Range/Units 05:00 05:00 WBC 7.4 (4.5-11.0) X10^3/uL RBC 4.85 (4.5-5.9) X10^6/uL Hgb 14.7 (13.5-17.5) g/dL Hct 42.7 (41-53) % MCV 87.9 (80-100) fL MCH 30.3 (26-34) PG MCHC 34.4 (30-36) % RDW 13.2 (11.6-14.8) % Plt Count 213 (150-400) X10^3/uL Neut % (Auto) 53.2 (50-75) % Lymph % (Auto) 34.9 (25-40) % Dodge % (Auto) 8.9 (3-14) % Eos % (Auto) 2.1 (2-4) % Baso % (Auto) 0.9 (0-2) % Neut # (Auto) 3900 (6431-3692) /uL Lymph # (Auto) 2600 (4301-8825) /uL Dodge # (Auto) 700 (0-900) /uL Eos # (Auto) 200 (0-450) /uL Baso # (Auto) 100 (0-100) /uL Sodium 139 (137-145) mmol/L Potassium 4.2 (3.4-5.1) mmol/L Chloride 107 (98-107) mmol/L Carbon Dioxide 24 (22-32) mmol/L BUN 20 (9-20) mg/dL Creatinine 0.90 (0.66-1.25) mg/dL Estimated GFR > 60.0 (>60) mL/min BUN/Creatinine Ratio 22.2 H (6-22) Glucose 106 H (70-100) mg/dL Calcium 9.7 (8.4-10.2) mg/dL Total Bilirubin 0.2 (0.2-1.3) mg/dL AST 28 (17-59) IU/L ALT 41 (21-72) IU/L Alkaline Phosphatase 53 (38-126) U/L Total Protein 7.0 (6.3-8.2) g/dL Albumin 4.2 (3.5-5.0) g/dL Globulin 2.8 (1.7-4.1) g/dL Albumin/Globulin Ratio 1.5 (1.0-2.8) Lipase 63 (23-300) U/L MDM Narrative Medical decision making narrative: Patient overall is feeling better with Zofran and Toradol. Blood work is reassuring. He has not actually had any loss of fluid symptoms ongoing for just a hour or so. At this time discharge home with oral rehydration instructions. He is given Zofran as well. At this time no imaging or further testing is required. Discharge Plan Departure Patient Disposition: Home Clinical Impression: Gastroenteritis Discharge Date/Time: 12/20/18 05:37 Instructions: DI for Viral Gastroenteritis -- Adult Activity Restrictions/Additional Instructions: *You have been diagnosed with gastroenteritis *What to do: He likely have the beginning of a stomach flu. With vomiting and diarrhea. He may start to have episodes of diarrhea or vomiting. Try to stay hydrated with Gatorade or Gatorade like substance. *Continue to take medications as directed Zofran 4 mg every 6-8 hours if needed for nausea or vomiting-->SENT TO [facility] IN [place] *Follow up with your primary care provider in 2-3 days *Return to ER if you should have inability to tolerate fluids, increase abdominal pain or any new, worsening or concerning symptoms Prescriptions: New ondansetron 4 mg tablet,disintegrating 4 mg PO Q6-8H PRN (Reason: nausea and vomiting) Qty: 10 RF: 0 No Action ondansetron 4 mg tablet,disintegrating 4 mg PO DAILY PRN (Reason: nausea and vomiting) Qty: 20 RF: 0 dextroamphetamine-amphetamine [Adderall] 20 MG tablet 20 mg PO BID Qty: 0 RF: 0 tramadol 50 MG tablet 1 mg PO Q4HP PRNQty: 30 RF: 3 varenicline [Chantix] 1 MG tablet 1 mg PO BID Qty: 60 RF: 2 clonazepam 0.5 MG tablet 1 mg PO BIDP PRNQty: 30 RF: 3 trazodone 50 MG tablet 25 mg PO HS PRNQty: 30 RF: 2 cyclobenzaprine 5 mg tablet 5 mg PO TID PRN (Reason: muscle spasm) Qty: 10 RF: 0 Stand Alone Forms: Work Release Note
[2018-12-20] MEDS: ONDANSETRON 4 MG/2 ML INJ IV (05:03)
[2018-12-20] MEDS: KETOROLAC 60 MG/2 ML VIAL 30 MG IV (05:04)
[2018-12-20 05:18] LABS: Alanine Aminotransferase 41 IU/L (21-72); Albumin 4.2 g/dL (3.5-5.0); Albumin Globulin Ratio 1.5 (1.0-2.8); Alkaline Phosphatase 53 U/L (38-126); Aspartate Aminotransferase 28 IU/L (17-59); BUN Creatinine Ratio 22.2 (6-22); Bilirubin Total 0.2 mg/dL (0.2-1.3); Blood Urea Nitrogen 20 mg/dL (9-20); Calcium 9.7 mg/dL (8.4-10.2); Carbon Dioxide 24 mmol/L (22-32); Chloride 107 mmol/L (98-107); Estimated Glomerular Filt Rate > 60.0 mL/min (>60); Globulin 2.8 g/dL (1.7-4.1); Glucose 106 mg/dL (70-100); HEMOLYSIS 24 (0-50); Lipase 63 U/L (23-300); Potassium 4.2 mmol/L (3.4-5.1); Sodium 139 mmol/L (137-145)
[2018-12-20 05:22] LABS: Add Manual Diff / Slide Review NO; Basophils Absolute Auto 100 /uL (0-100); Basophils Percent Auto 0.9 % (0-2); Eosinophils Absolute Auto 200 /uL (0-450); Eosinophils Percent Auto 2.1 % (2-4); Hematocrit 42.7 % (41-53); Hemoglobin 14.7 g/dL (13.5-17.5); Lymphocytes Absolute Auto 2600 /uL (1100-4500); Lymphocytes Percent Auto 34.9 % (25-40); Mean Corpuscular HGB Conc 34.4 % (30-36); Mean Corpuscular Hemoglobin 30.3 PG (26-34); Mean Corpuscular Volume 87.9 fL (80-100); Monocytes Absolute Auto 700 /uL (0-900); Monocytes Percent Auto 8.9 % (3-14); Neutrophils Absolute Auto 3900 /uL (1500-7000); Neutrophils Percent Auto 53.2 % (50-75); Platelet Count 213 X10^3/uL (150-400); Red Blood Cell Count 4.85 X10^6/uL (4.5-5.9); Red Cell Distribution Width 13.2 % (11.6-14.8); White Blood Cell Count 7.4 X10^3/uL (4.5-11.0)
[2018-12-20 05:36] VITALS: BP 117/77; PULSE 72; RESP 16; O2SAT 99
--- NOTE | 2018-12-20 05:36 | PC.NURSE ---
Denies pain,denies nausea.
== END 2018-12-20 05:37 | disposition home or self-care (01) ==
PROVIDERS: Emergency Provider Emergency Medicine
DX: K52.9 Noninfective gastroenteritis and colitis, unspecified (principal)
CPT/HCPCS: 36591; 80053; 83690; 85025; 96374; 96375; 99282; 99284; J1885; J2405

== ENCOUNTER 2018-12-28 04:30 | Emergency (ER) | payer OTHER, MEDICAID, SELFPAY ==
[2018-12-28 04:35] VITALS: BP 124/77; PULSE 72; RESP 18; TEMP 36.9; O2SAT 96; BMI 40.6
--- NOTE | 2018-12-28 04:41 | ED.EXTPRO ---
HPI - Extremity Problem General Chief complaint: Extremity Problem,Nontraumatic Stated complaint: right foot pain x 2days Time Seen by Provider: 12/28/18 04:41 Source: patient Mode of arrival: ambulatory Limitations: no limitations History of Present Illness HPI Narrative: 33-year-old male here for evaluation of pain to the bottom of his right foot. He states that it started a couple days ago. He was seen in the walk-in clinic yesterday. Was given a note for work. He returns today saying that the pain is worse. He states it is worse in the morning. No trauma. Has had plantar fasciitis diagnose in the past. This is day 2 of his symptoms. Related Data Home Medications Medication Instructions Recorded Confirmed dextroamphetamine-amphetamine 20 mg PO BID #0 07/18/16 12/27/18 [Adderall] lamotrigine 100 mg tablet 100 mg PO DAILY 12/27/18 12/27/18 loratadine 10 mg tablet 10 mg PO DAILY 12/27/18 12/27/18 montelukast 10 mg tablet 10 mg PO QPM 12/27/18 12/27/18 Previous Rx's Medication Instructions Recorded tramadol 1 mg PO Q4HP PRN #30 tab 02/16/17 clonazepam 1 mg PO BIDP PRN #30 tab 09/05/17 trazodone 25 mg PO HS PRN #30 tab 10/26/17 cyclobenzaprine 5 mg PO TID PRN #10 tab 12/16/18 ondansetron 4 mg PO Q6-8H PRN #10 tab 12/20/18 Allergies Allergy/AdvReac Type Severity Reaction Status Date / Time No Known Drug Allergies Allergy Verified 12/27/18 09:04 Review of Systems Musculoskeletal Comments: Right foot pain Integumentary/Breasts Denies rash Hematologic/Lymphatic Denies easy bleeding and Denies easy bruising [facility] Medical History Plantar fasciitis (Acute) ADHD (Chronic) Social History Smoking Status: Current every day smoker Social History Smoking Status: Current every day smoker Exam Initial Vital Signs Initial Vital Signs: Vital Signs Temperature 98.4 F 12/28/18 04:35 Pulse Rate 72 12/28/18 04:35 Respiratory Rate 18 12/28/18 04:35 Blood Pressure 124/77 12/28/18 04:35 Pulse Oximetry 96 12/28/18 04:35 Const General: cooperative, well developed, well groomed and No acute distress Orientation: alert, awake and oriented x3 Cardio Pulses: dorsalis pedis present on the right Skin Lesions: no lesions Rashes: no rashes Neuro Sensory Exam: no sensory deficits noted Extrem Other: Patient with tenderness to palpation on the plantar aspect of his foot from the base of the metatarsals to his heel. Psych Appearance: grossly normal and well kempt Course Vital Signs - 8 hr 12/28/18 04:35 Temperature 98.4 F Pulse Rate 72 Respiratory Rate 18 Blood Pressure 124/77 Pulse Oximetry 96 MDM - Extremity (Nontraumatic) MDM Narrative Medical decision making narrative: Patient is neurovascular intact. His history and physical exam is very consistent with plantar fasciitis. Informed him that there is no easy fix for this. We did discuss anti-inflammatories. We did discuss other things he could try like rolling his foot over a frozen bottle of water. Informed him that if he needed any further work restriction notes that he needed to contact Dr. bright for this. No indication for x-rays. Discharge Plan Departure Patient Disposition: Home Clinical Impression: Plantar fasciitis of right foot Instructions: DI for Plantar Fasciitis Activity Restrictions/Additional Instructions: Plantar fasciitis is an issue that sometimes takes weeks if not months to improve. You can use insoles that it can be purchased [id number]. I would recommend you take anti-inflammatories such as Motrin or Naprosyn. Be sure you are taking this with food is sick and irritate your stomach. It any further work related restrictions need to come from her primary doctor. Prescriptions: No Action lamotrigine [Lamictal] 100 mg tablet 100 mg PO DAILY RF: 0 montelukast [Singulair] 10 mg tablet 10 mg PO QPM RF: 0 loratadine [Claritin] 10 mg tablet 10 mg PO DAILY RF: 0 dextroamphetamine-amphetamine [Adderall] 20 MG tablet 20 mg PO BID Qty: 0 RF: 0 tramadol 50 MG tablet 1 mg PO Q4HP PRNQty: 30 RF: 3 clonazepam 0.5 MG tablet 1 mg PO BIDP PRNQty: 30 RF: 3 trazodone 50 MG tablet 25 mg PO HS PRNQty: 30 RF: 2 cyclobenzaprine 5 mg tablet 5 mg PO TID PRN (Reason: muscle spasm) Qty: 10 RF: 0 ondansetron 4 mg tablet,disintegrating 4 mg PO Q6-8H PRN (Reason: nausea and vomiting) Qty: 10 RF: 0 Stand Alone Forms: Work Release Note
== END 2018-12-28 04:58 | disposition home or self-care (01) ==
PROVIDERS: Emergency Provider Emergency Medicine
DX: M72.2 Plantar fascial fibromatosis (principal)
CPT/HCPCS: 99282

== ENCOUNTER 2019-02-19 17:08 | Emergency (ER) | payer OTHER, MEDICAID, SELFPAY ==
[2019-02-19 17:17] VITALS: BP 144/85; PULSE 70; RESP 20; TEMP 36.9; O2SAT 98; BMI 40.7
[2019-02-19] MEDS: ONDANSETRON 4 MG/2 ML INJ IV (17:33)
[2019-02-19] MEDS: SODIUM CHLORIDE 0.9% 1,000 ML 1000 ML IV (17:37)
[2019-02-19 17:39] LABS: Add Manual Diff / Slide Review NO; Basophils Absolute Auto 100 /uL (0-100); Basophils Percent Auto 0.8 % (0-2); Eosinophils Absolute Auto 100 /uL (0-450); Eosinophils Percent Auto 1.3 % (2-4); Hematocrit 40.8 % (41-53); Hemoglobin 14.1 g/dL (13.5-17.5); Lymphocytes Absolute Auto 2700 /uL (1100-4500); Lymphocytes Percent Auto 27.8 % (25-40); Mean Corpuscular HGB Conc 34.7 % (30-36); Mean Corpuscular Hemoglobin 30.4 PG (26-34); Mean Corpuscular Volume 87.5 fL (80-100); Monocytes Absolute Auto 500 /uL (0-900); Monocytes Percent Auto 5.5 % (3-14); Neutrophils Absolute Auto 6400 /uL (1500-7000); Neutrophils Percent Auto 64.6 % (50-75); Platelet Count 192 X10^3/uL (150-400); Red Blood Cell Count 4.66 X10^6/uL (4.5-5.9); Red Cell Distribution Width 12.9 % (11.6-14.8); White Blood Cell Count 9.9 X10^3/uL (4.5-11.0)
[2019-02-19 17:53] LABS: Alanine Aminotransferase 31 IU/L (21-72); Albumin 4.4 g/dL (3.5-5.0); Albumin Globulin Ratio 1.6 (1.0-2.8); Alkaline Phosphatase 65 U/L (38-126); Aspartate Aminotransferase 29 IU/L (17-59); BUN Creatinine Ratio 21.1 (6-22); Bilirubin Total 0.3 mg/dL (0.2-1.3); Blood Urea Nitrogen 19 mg/dL (9-20); Carbon Dioxide 24 mmol/L (22-32); Chloride 105 mmol/L (98-107); Creatine Kinase 177 U/L (55-170); Estimated Glomerular Filt Rate > 60.0 mL/min (>60); Globulin 2.8 g/dL (1.7-4.1); Glucose 114 mg/dL (70-100); HEMOLYSIS 17 (0-50); Magnesium 1.9 mg/dL (1.6-2.3); Potassium 3.8 mmol/L (3.4-5.1); Sodium 139 mmol/L (137-145); Total Protein 7.2 g/dL (6.3-8.2)
[2019-02-19 18:00] VITALS: BP 107/63; PULSE 70; RESP 20; O2SAT 93
[2019-02-19 18:05] LABS: Troponin I < 0.012 ng/mL (0.01-0.034)
[2019-02-19 18:08] LABS: CKMB % Relative Index 0.8 % (1.5-5.0); Creatine Kinase MB 1.49 ng/mL (<2.37)
[2019-02-19 19:00] VITALS: BP 121/67; BP 126/70; BP 139/79; PULSE 71; PULSE 84
[2019-02-19 19:09] VITALS: BP 121/67
--- NOTE | 2019-02-19 19:11 | ED_ITS ---
HPI - Dizziness <SP Vick - Last Filed: 02/19/19 19:10> General Chief Complaint: Dizziness Stated Complaint: GOT DIZZY AT WORK Time Seen by Provider: 02/19/19 17:11 Source: patient Mode of arrival: ambulatory Limitations: no limitations History of Present Illness HPI Narrative: The patient is a 33-year-old male with history of bipolar disorder current smoker presents with a chief complaint of dizziness. He states he became dizzy at work. 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 He states he has not had any water to drink today, has only had some breakfast to eat. He denies any chest pain, fevers, vomiting or diarrhea. He does complain of some nausea. He denies any cough or congestion. He believes this is related to dehydration. Related Data Previous Rx's Medication Instructions Recorded ondansetron 4 mg PO Q6-8H PRN #10 tab 12/20/18 clonazepam 1 mg tablet 1 mg PO BIDP PRN #60 tab 02/14/19 dextroamphetamine-amphetamine ER 20 mg PO BID #60 cap 02/14/19 20 mg 24hr capsule,extend release ketorolac 10 mg tablet 10 mg PO Q6H PRN 7 Days #30 tab 02/14/19 lamotrigine 100 mg tablet 200 mg PO DAILY #60 tab 02/14/19 loratadine 10 mg tablet 10 mg PO DAILY #90 tab 02/14/19 montelukast 10 mg tablet 10 mg PO QPM #90 tab 02/14/19 trazodone 50 mg tablet 50 mg PO HS #90 tab 02/14/19 Allergies Allergy/AdvReac Type Severity Reaction Status Date / Time No Known Drug Allergies Allergy Verified 02/14/19 15:04 Review of Systems <SP Vick - Last Filed: 02/19/19 19:10> Review of Systems GENERAL: Denies chills, fatigue, malaise, fever, sweats. HEENT: Denies sinus pain, ear pain, sore throat, difficulty swallowing, dizziness. RESPIRATORY: Denies dyspnea, cough, wheezing, hemoptysis, sputum. CARDIOVASCULAR: Denies chest pain, palpitations, orthopnea, edema, GASTROINTESTINAL: Denies nausea, vomiting, abdominal pain, diarrhea, constipation, melena. : Denies dysuria, frequency, incontinence, hematuria, urinary retention. MUSCULOSKELETAL: denies weakness, joint pain, or bony pain SKIN: Denies rash, skin lesions, or other NEUROLOGIC: See HPI PSYCHIATRIC: No concerning psychosocial issues. 12 point review of systems is negative except for those stated above PFSH <SP Vick - Last Filed: 02/19/19 19:10> Medical History ADHD (Chronic) History of bipolar disorder (Chronic) Plantar fasciitis (Chronic) Social History Smoking Status: Current every day smoker Social History Smoking Status: Current every day smoker Exam <SP Vick - Last Filed: 02/19/19 19:10> Narrative Exam Narrative: GENERAL: Obese female in no acute distress HEAD: Atraumatic. Normocephalic. No temporal or scalp tenderness. EYES: Pupils equal round and reactive. Extraocular motions intact. No scleral icterus. No injection or drainage. ENT: Nose without bleeding, purulent drainage or septal hematoma. Throat without erythema, tonsillar hypertrophy or exudate. Uvula midline. Airway patent. NECK: Trachea midline. No JVD or lymphadenopathy. Supple, nontender, no meningeal signs. CARDIOVASCULAR: Regular rate and rhythm without murmurs, gallops, or rubs. RESPIRATORY: Clear to auscultation. Breath sounds equal bilaterally. No wheezes, rales, or rhonchi. No cough. No acute respiratory effort. No accessory muscle use. GASTROINTESTINAL: Abdomen soft, non-tender, nondistended. No hepato- splenomegaly, or palpable masses. No guarding. EXTREMITIES: No clubbing, cyanosis, or edema. No joint tenderness, effusion, or edema noted. BACK: Nontender without deformity or crepitance. No flank tenderness. NEURO: AOx3. SKIN: No rash or erythema. Initial Vital Signs Initial Vital Signs: Vital Signs Temperature 98.4 F 02/19/19 17:17 Pulse Rate 70 02/19/19 17:17 Respiratory Rate 20 02/19/19 17:17 Blood Pressure 144/85 H 02/19/19 17:17 Pulse Oximetry 98 02/19/19 17:17 <Lobo Chaudhari DO - Last Filed: 02/20/19 07:20> Initial Vital Signs Initial Vital Signs: Vital Signs Temperature 98.4 F 02/19/19 17:17 Pulse Rate 70 02/19/19 17:17 Respiratory Rate 20 02/19/19 17:17 Blood Pressure 144/85 H 02/19/19 17:17 Pulse Oximetry 98 02/19/19 17:17 Course <KYLE Vick-JACK - Last Filed: 02/19/19 19:10> Orders Ordered: Discontinued Medications Sodium Chloride (Normal Saline 0.9%) 500 mls @ 1,000 mls/hr IV BOLUS ONE Stop: 02/19/19 17:45 Last Admin: 02/19/19 17:42 Dose: Not Given Sodium Chloride (Normal Saline 0.9%) 1,000 mls @ 1,000 mls/hr IV BOLUS ONE Stop: 02/19/19 18:34 Last Infusion: 02/19/19 18:40 Dose: 0 mls/hr Admin: 02/19/19 17:37 Dose: 1,000 mls/hr Ondansetron HCl (Zofran) 4 mg IV NOW ONE Stop: 02/19/19 17:17 Last Admin: 02/19/19 17:33 Dose: 4 mg Vital Signs - 8 hr 02/19/19 17:17 02/19/19 18:00 02/19/19 19:00 Temperature 98.4 F Pulse Rate 70 70 Pulse Rate [Orthostatic Lying] 84 Pulse Rate [Orthostatic Sitting] 71 Pulse Rate [Orthostatic Standing] 84 Respiratory Rate 20 20 Blood Pressure 144/85 H Blood Pressure [Orthostatic Lying] 121/67 Blood Pressure [Orthostatic Sitting] 126/70 Blood Pressure [Orthostatic Standing] 139/79 Blood Pressure [Right Arm] 107/63 Pulse Oximetry 98 93 <Lobo Chaudhari DO - Last Filed: 02/20/19 07:20> Orders Ordered: Discontinued Medications Sodium Chloride (Normal Saline 0.9%) 500 mls @ 1,000 mls/hr IV BOLUS ONE Stop: 02/19/19 17:45 Last Admin: 02/19/19 17:42 Dose: Not Given Sodium Chloride (Normal Saline 0.9%) 1,000 mls @ 1,000 mls/hr IV BOLUS ONE Stop: 02/19/19 18:34 Last Infusion: 02/19/19 18:40 Dose: 0 mls/hr Admin: 02/19/19 17:37 Dose: 1,000 mls/hr Ondansetron HCl (Zofran) 4 mg IV NOW ONE Stop: 02/19/19 17:17 Last Admin: 02/19/19 17:33 Dose: 4 mg Vital Signs - 8 hr 02/19/19 17:17 02/19/19 18:00 02/19/19 19:00 Temperature 98.4 F Pulse Rate 70 70 Pulse Rate [Orthostatic Lying] 84 Pulse Rate [Orthostatic Sitting] 71 Pulse Rate [Orthostatic Standing] 84 Respiratory Rate 20 20 Blood Pressure 144/85 H Blood Pressure [Orthostatic Lying] 121/67 Blood Pressure [Orthostatic Sitting] 126/70 Blood Pressure [Orthostatic Standing] 139/79 Blood Pressure [Right Arm] 107/63 Pulse Oximetry 98 93 MDM - Dizziness <SHANNAN VickBC - Last Filed: 02/19/19 19:10> Lab Data Result diagrams: 02/19/19 17:30 02/19/19 17:30 Lab Results 02/19/19 02/19/19 Range/Units 17:30 17:30 WBC 9.9 (4.5-11.0) X10^3/uL RBC 4.66 (4.5-5.9) X10^6/uL Hgb 14.1 (13.5-17.5) g/dL Hct 40.8 L (41-53) % MCV 87.5 (80-100) fL MCH 30.4 (26-34) PG MCHC 34.7 (30-36) % RDW 12.9 (11.6-14.8) % Plt Count 192 (150-400) X10^3/uL Neut % (Auto) 64.6 (50-75) % Lymph % (Auto) 27.8 (25-40) % [place] % (Auto) 5.5 (3-14) % Eos % (Auto) 1.3 L (2-4) % Baso % (Auto) 0.8 (0-2) % Neut # (Auto) 6400 (1679-7517) /uL Lymph # (Auto) 2700 (4564-5141) /uL [place] # (Auto) 500 (0-900) /uL Eos # (Auto) 100 (0-450) /uL Baso # (Auto) 100 (0-100) /uL Sodium 139 (137-145) mmol/L Potassium 3.8 (3.4-5.1) mmol/L Chloride 105 (98-107) mmol/L Carbon Dioxide 24 (22-32) mmol/L BUN 19 (9-20) mg/dL Creatinine 0.90 (0.66-1.25) mg/dL Estimated GFR > 60.0 (>60) mL/min BUN/Creatinine Ratio 21.1 (6-22) Glucose 114 H (70-100) mg/dL Calcium 10.0 (8.4-10.2) mg/dL Magnesium 1.9 (1.6-2.3) mg/dL Total Bilirubin 0.3 (0.2-1.3) mg/dL AST 29 (17-59) IU/L ALT 31 (21-72) IU/L Alkaline Phosphatase 65 (38-126) U/L Total Creatine Kinase 177 H (55-170) U/L CK-MB (CK-2) 1.49 (<2.37) ng/mL CK-MB (CK-2) Rel Index 0.8 L (1.5-5.0) % Troponin I < 0.012 (0.01-0.034) ng/mL Total Protein 7.2 (6.3-8.2) g/dL Albumin 4.4 (3.5-5.0) g/dL Globulin 2.8 (1.7-4.1) g/dL Albumin/Globulin Ratio 1.6 (1.0-2.8) ECG Data Attestation: I personally reviewed and interpreted this ECG as follows: Interpretation: Sinus rhythm. Ventricular rate 73. No ST elevation or depression. No ectopy noted. 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 He was able to ambulate to the emergency department. He has negative orthostatics, overall normal lab work and a normal EKG. He felt much improved after a L of IV fluid. I discussed at length pushing fluids and trying to not become dehydrated at work. Encouraged follow-up with PCP. Patient has no questions or concerns upon discharge. Discussed coming back to the ER for any acute symptoms such as chest pain or shortness of breath. <Lobo Chaudhari, DO - Last Filed: 02/20/19 07:20> Lab Data Lab Results 02/19/19 02/19/19 Range/Units 17:30 17:30 WBC 9.9 (4.5-11.0) X10^3/uL RBC 4.66 (4.5-5.9) X10^6/uL Hgb 14.1 (13.5-17.5) g/dL Hct 40.8 L (41-53) % MCV 87.5 (80-100) fL MCH 30.4 (26-34) PG MCHC 34.7 (30-36) % RDW 12.9 (11.6-14.8) % Plt Count 192 (150-400) X10^3/uL Neut % (Auto) 64.6 (50-75) % Lymph % (Auto) 27.8 (25-40) % [place] % (Auto) 5.5 (3-14) % Eos % (Auto) 1.3 L (2-4) % Baso % (Auto) 0.8 (0-2) % Neut # (Auto) 6400 (8308-4232) /uL Lymph # (Auto) 2700 (5658-2334) /uL [place] # (Auto) 500 (0-900) /uL Eos # (Auto) 100 (0-450) /uL Baso # (Auto) 100 (0-100) /uL Sodium 139 (137-145) mmol/L Potassium 3.8 (3.4-5.1) mmol/L Chloride 105 (98-107) mmol/L Carbon Dioxide 24 (22-32) mmol/L BUN 19 (9-20) mg/dL Creatinine 0.90 (0.66-1.25) mg/dL Estimated GFR > 60.0 (>60) mL/min BUN/Creatinine Ratio 21.1 (6-22) Glucose 114 H (70-100) mg/dL Calcium 10.0 (8.4-10.2) mg/dL Magnesium 1.9 (1.6-2.3) mg/dL Total Bilirubin 0.3 (0.2-1.3) mg/dL AST 29 (17-59) IU/L ALT 31 (21-72) IU/L Alkaline Phosphatase 65 (38-126) U/L Total Creatine Kinase 177 H (55-170) U/L CK-MB (CK-2) 1.49 (<2.37) ng/mL CK-MB (CK-2) Rel Index 0.8 L (1.5-5.0) % Troponin I < 0.012 (0.01-0.034) ng/mL Total Protein 7.2 (6.3-8.2) g/dL Albumin 4.4 (3.5-5.0) g/dL Globulin 2.8 (1.7-4.1) g/dL Albumin/Globulin Ratio 1.6 (1.0-2.8) Discharge Plan Departure Patient Disposition: Home Clinical Impression: Dizziness Discharge Date/Time: 02/19/19 19:17 Interventions: ED Discharge Assessment Last Done: 02/19/19 19:16 Instructions: DI for Dehydration -- Adult, DI for Dizziness-Nonvertigo Activity Restrictions/Additional Instructions: Your symptoms responded well to IV fluids. Please be sure to drink water at work. I have given you a note to keep a water bottle with you. Please follow up with primary care provider. Please come back to the emergency department for any acute concerns. Prescriptions: No Action ketorolac 10 mg tablet 10 mg PO Q6H PRN (Reason: pain) 7 Days Qty: 30 RF: 0 clonazepam 1 mg tablet 1 mg PO BIDP PRN (Reason: anxiety) Qty: 60 RF: 5 loratadine [Claritin] 10 mg tablet 10 mg PO DAILY Qty: 90 RF: 3 montelukast [Singulair] 10 mg tablet 10 mg PO QPM Qty: 90 RF: 3 trazodone 50 mg tablet 50 mg PO HS Qty: 90 RF: 1 lamotrigine [Lamictal] 100 mg tablet 200 mg PO DAILY Qty: 60 RF: 1 dextroamphetamine-amphetamine 20 mg capsule,extended release 24hr 20 mg PO BID Qty: 60 RF: 0 ondansetron 4 mg tablet,disintegrating 4 mg PO Q6-8H PRN (Reason: nausea and vomiting) Qty: 10 RF: 0 Referrals: Ian Wang MD [Physician] - Stand Alone Forms: Work Release Note <Lobo Chaudhari DO - Last Filed: 02/20/19 07:20> Cosign ED Attending Regla Attestation: I was available for consultation during this patient's emergency department encounter
== END 2019-02-19 19:17 | disposition home or self-care (01) ==
PROVIDERS: Emergency Provider Nurse Practitioner Family
DX: R42 Dizziness and giddiness (principal); Y99.0 Civilian activity done for income or pay
CPT/HCPCS: 36591; 80053; 82550; 82553; 83735; 84484; 85025; 93005; 96361; 96374; 99283; 99284; J2405

== ENCOUNTER 2019-03-07 17:21 | Emergency (ER) | payer OTHER, MEDICAID, SELFPAY ==
[2019-03-07 17:28] VITALS: BP 132/100; PULSE 95; RESP 18; TEMP 36.9; O2SAT 96; BMI 40.6
--- NOTE | 2019-03-07 17:57 | ED_ITS ---
HPI - Headache <Lien Mahmood PA-C - Last Filed: 03/07/19 19:31> General Chief Complaint: Headache Stated Complaint: med change, needs them changed again Time Seen by Provider: 03/07/19 17:30 Source: patient Mode of arrival: ambulatory Limitations: no limitations History of Present Illness HPI Narrative: This 33-year-old patient comes to ED mainly secondary to right- sided headache. He states he does not have a history of migraines. He woke up with headache this morning, states he slept restlessly last night but otherwise was fine yesterday. He states that he took some ibuprofen earlier and worked, but headache gradually worsened. He states that he has not had any earache, fever, or upper respiratory symptoms. He denies any new rash. He denies any new injury or neck strain. He denies any nausea, vomiting, vision change. He states he has chronic foot pain due to his plantar fasciitis which is worse after standing all day. He is also interested in changing some of his chronic medications as he is having difficulty with anger management issues at times. He states he got in an argument with his prior to coming here and thinks that worsens his headache. Related Data Home Medications Medication Instructions Recorded Confirmed trazodone 50 mg PO BEDTIME 03/07/19 03/07/19 Previous Rx's Medication Instructions Recorded ondansetron 4 mg PO Q6-8H PRN #10 tab 12/20/18 clonazepam 1 mg tablet 1 mg PO BIDP PRN #60 tab 02/14/19 dextroamphetamine-amphetamine ER 20 mg PO BID #60 cap 02/14/19 20 mg 24hr capsule,extend release lamotrigine 100 mg tablet 200 mg PO DAILY #60 tab 02/14/19 loratadine 10 mg tablet 10 mg PO DAILY #90 tab 02/14/19 montelukast 10 mg tablet 10 mg PO QPM #90 tab 02/14/19 Allergies Allergy/AdvReac Type Severity Reaction Status Date / Time No Known Drug Allergies Allergy Verified 03/07/19 17:35 Review of Systems <Lien Mahmood PA-C - Last Filed: 03/07/19 19:31> Review of Systems ROS Unobtainable: All systems reviewed & are unremarkable except as noted in HPI and below PFSH <Lien Mahmood PA-C - Last Filed: 03/07/19 19:31> Medical History (Updated 03/07/19 @ 19:01 by Lien Mahmood PA-C) ADHD (Chronic) History of bipolar disorder (Chronic) Plantar fasciitis (Chronic) Seasonal allergies (Chronic) Surgical History (Updated 03/07/19 @ 18:03 by Lien Mahmood PA-C) No pertinent past surgical history (Chronic) Social History Smoking Status: Current every day smoker Social History Smoking Status: Current every day smoker Exam <Lien Mahmood PA-C - Last Filed: 03/07/19 19:31> Narrative Exam Narrative: GENERAL APPEARANCE: Patient sitting comfortably, playing a video game on cell phone HEENT: PERRL, EOMI, normal TMs and oropharynx, mild right frontal tenderness, no maxillary tenderness NECK: Supple, no masses LUNGS: Clear to auscultation bilaterally. HEART: Rate and rhythm regular without murmur, normal S1 and S2, no S3 or S4. NEUROLOGIC: Alert and oriented, normal speech and coordination. MUSCULOSKELETAL: No point tenderness over the cervical spine, tender over the right cervical strap musculature. Full Csp AROM, tender with full left lateral bend and flexion. Initial Vital Signs Initial Vital Signs: Vital Signs Temperature 98.5 F 03/07/19 17:28 Pulse Rate 95 H 03/07/19 17:28 Respiratory Rate 18 03/07/19 17:28 Blood Pressure 132/100 H 03/07/19 17:28 Pulse Oximetry 96 03/07/19 17:28 <Lobo Chaudhari DO - Last Filed: 03/07/19 23:48> Initial Vital Signs Initial Vital Signs: Vital Signs Temperature 98.5 F 03/07/19 17:28 Pulse Rate 95 H 03/07/19 17:28 Respiratory Rate 18 03/07/19 17:28 Blood Pressure 132/100 H 03/07/19 17:28 Pulse Oximetry 96 03/07/19 17:28 Course <Lien Mahmood PA-C - Last Filed: 03/07/19 19:31> Additional Information: Patient is sleeping comfortably at the time of discharge and has to be awakened. Advised to avoid screen time today, rest quietly, given return precautions. Orders Ordered: Discontinued Medications Cyclobenzaprine HCl (Flexeril) 10 mg PO NOW ONE Stop: 03/07/19 17:54 Last Admin: 03/07/19 18:03 Dose: 10 mg Ibuprofen (Advil) 800 mg PO NOW ONE Stop: 03/07/19 17:54 Last Admin: 03/07/19 18:03 Dose: 800 mg Vital Signs - 8 hr 03/07/19 17:28 Temperature 98.5 F Pulse Rate 95 H Respiratory Rate 18 Blood Pressure 132/100 H Pulse Oximetry 96 <Lobo Chaudhari DO - Last Filed: 03/07/19 23:48> Orders Ordered: Discontinued Medications Cyclobenzaprine HCl (Flexeril) 10 mg PO NOW ONE Stop: 03/07/19 17:54 Last Admin: 03/07/19 18:03 Dose: 10 mg Ibuprofen (Advil) 800 mg PO NOW ONE Stop: 03/07/19 17:54 Last Admin: 03/07/19 18:03 Dose: 800 mg Vital Signs - 8 hr 03/07/19 17:28 Temperature 98.5 F Pulse Rate 95 H Respiratory Rate 18 Blood Pressure 132/100 H Pulse Oximetry 96 Discharge Plan Departure Patient Disposition: Home Clinical Impression: Headache Qualifiers: Headache type: tension-type Headache chronicity pattern: acute headache Intractability: not intractable Qualified Code(s): G44.209 - Tension-type headache, unspecified, not intractable Discharge Date/Time: 03/07/19 19:26 Interventions: ED Discharge Assessment Last Done: 03/07/19 19:25 Instructions: DI for Headache Activity Restrictions/Additional Instructions: Please go home and rest quietly in a dark room tonight, use the ice pack for your neck, no screen time. I think you have headache caused by the sore muscle in your neck and I expect this to continue to improve. You can continue ibuprofen and gentle stretching as needed. You can use ice and heat as needed as well. As we talked about, you should return if you have any acute changes such as vomiting, vision change, or new fever. Please follow-up with your primary care provider or psychiatrist to talk about medication changes, and also to discuss whether to get a referral to podiatry for your plantar fasciitis since you have had it for such a long time. Prescriptions: No Action clonazepam 1 mg tablet 1 mg PO BIDP PRN (Reason: anxiety) Qty: 60 RF: 5 loratadine [Claritin] 10 mg tablet 10 mg PO DAILY Qty: 90 RF: 3 montelukast [Singulair] 10 mg tablet 10 mg PO QPM Qty: 90 RF: 3 lamotrigine [Lamictal] 100 mg tablet 200 mg PO DAILY Qty: 60 RF: 1 dextroamphetamine-amphetamine 20 mg capsule,extended release 24hr 20 mg PO BID Qty: 60 RF: 0 trazodone 50 mg tablet 50 mg PO BEDTIME RF: 0 ondansetron 4 mg tablet,disintegrating 4 mg PO Q6-8H PRN (Reason: nausea and vomiting) Qty: 10 RF: 0 Referrals: Ian Wang MD [Primary Care Provider] - Stand Alone Forms: Work Release Note <Lobo Chaudhari DO - Last Filed: 03/07/19 23:48> Cosign ED Attending Cosignature Attestation: I was available for consultation during this patient's emergency department encounter
[2019-03-07] MEDS: CYCLOBENZAPRINE 10 MG TABLET PO (18:03)
[2019-03-07] MEDS: IBUPROFEN 400 MG TABLET 800 MG PO (18:03)
--- NOTE | 2019-03-07 19:24 | CM.SWNOTE ---
[employer] ED visit per provider request. Pt has had 2-ED visits within the last week for minor concerns. He has a history of bipolar disorder, however this is not a concern for him at this time. He states that he is connected to psychiatric support, however was interested in meeting with this WATER [employer]OL SUPERVISOR for support and discussion of resources. WATER CONTROL SUPERVISOR was unable to meet with pt today, as he was deeply sleeping at time of WATER CONTROL SUPERVISOR visit. No further need's indicated at this time per ED provider. Initialized on 03/07/19 18:57 - END OF NOTE
== END 2019-03-07 19:26 | disposition home or self-care (01) ==
PROVIDERS: Emergency Provider Internal Medicine; PCP Student in an Organized Health Care Education/Training Program
DX: G44.209 Tension-type headache, unspecified, not intractable (principal)
CPT/HCPCS: 99282; 99283

== ENCOUNTER 2019-03-23 18:33 | Emergency (ER) | payer OTHER, MEDICAID, SELFPAY ==
[2019-03-23 18:35] VITALS: BP 138/86; PULSE 98; RESP 18; TEMP 36.5; O2SAT 95; BMI 40.8
--- NOTE | 2019-03-23 18:49 | DI.CT.S_ITS ---
PROCEDURE: CT HEAD/BRAIN WO CON INDICATIONS: right sided numbness TECHNIQUE: Noncontrast 4.5 mm thick angled axial sections acquired from the foramen magnum to the vertex, with coronal and sagittal reformats. For radiation dose reduction, the following was used: automated exposure control, adjustment of mA and/or kV according to patient size. COMPARISON: None. FINDINGS: Image quality: Excellent. CSF spaces: Basal cisterns are patent. No extra-axial fluid collections. Ventricles are normal in size and shape. Brain: No midline shift. No intracranial masses or hemorrhage. [place]-white matter interface is normal. Skull and face: Calvarium and visualized facial bones are intact, without suspicious lesions. Sinuses: Visualized sinuses and mastoids are clear. IMPRESSION: 1. No acute intracranial abnormalities. Dictated by: Megan Paetl M.D. on 03/23/2019 at 19:08 Approved by: Megan Patel M.D. on 03/23/2019 at 19:10
--- NOTE | 2019-03-23 18:53 | ED_ITS ---
HPI - Neuro Symptoms/Deficit General Chief Complaint: Neuro Symptoms/Deficit Stated Complaint: right side is tingly Time Seen by Provider: 03/23/19 18:49 Source: patient Mode of arrival: ambulatory Limitations: no limitations History of Present Illness HPI Narrative: Patient is a 33-year-old male who presents with a right sided tingling. He says it started about 30 minutes prior to arrival he was going from 1 job to the next. He actually did not work at his 1st job he thought it is on the schedule but was not. He then felt like his whole right side was numb. He has no difficulty walking no speech problems. He said this happened to him 1 other time in he was just sort of out of it for 2 days. He felt fine this morning. He says that he only ate is cereal right when this started. He did not eat anything the rest of the day. He says that is sometimes happens. Not atypical for him Onset (ago): minute(s) (30) Location: right face, right arm and right leg History of same: Yes On Anticoagulants: No Related Data Home Medications Medication Instructions Recorded Confirmed trazodone 50 mg PO BEDTIME 03/07/19 03/07/19 Previous Rx's Medication Instructions Recorded ondansetron 4 mg PO Q6-8H PRN #10 tab 12/20/18 clonazepam 1 mg tablet 1 mg PO BIDP PRN #60 tab 02/14/19 dextroamphetamine-amphetamine ER 20 mg PO BID #60 cap 02/14/19 20 mg 24hr capsule,extend release lamotrigine 100 mg tablet 200 mg PO DAILY #60 tab 02/14/19 loratadine 10 mg tablet 10 mg PO DAILY #90 tab 02/14/19 montelukast 10 mg tablet 10 mg PO QPM #90 tab 02/14/19 Allergies Allergy/AdvReac Type Severity Reaction Status Date / Time No Known Drug Allergies Allergy Verified 03/23/19 18:45 Review of Systems Review of Systems GENERAL: Denies chills, fatigue, malaise, fever, sweats, travel HEENT: Denies sinus pain, ear pain, sore throat, difficulty swallowing, neck pain RESPIRATORY: Denies dyspnea, cough, wheezing, hemoptysis, sputum. CARDIOVASCULAR: Denies chest pain, palpitations, orthopnea, edema GASTROINTESTINAL: Denies nausea, vomiting, abdominal pain, diarrhea, constipation, melena. : Denies dysuria, frequency, incontinence, hematuria, urinary retention, flank pain. MUSCULOSKELETAL: Denies weakness, joint pain, or bony pain SKIN: No rash, no erythema, no pruritus NEUROLOGIC: See HPI PSYCHIATRIC: No concerning psychosocial issues. 12 point review of systems is negative except for those stated above and HPI [facility] Medical History ADHD (Chronic) History of bipolar disorder (Chronic) Plantar fasciitis (Chronic) Seasonal allergies (Chronic) Surgical History No pertinent past surgical history (Chronic) Social History Smoking Status: Current every day smoker Social History Smoking Status: Current every day smoker Exam Initial Vital Signs Initial Vital Signs: Vital Signs Temperature 97.7 F 03/23/19 18:35 Pulse Rate 98 H 03/23/19 18:35 Respiratory Rate 18 03/23/19 18:35 Blood Pressure 138/86 03/23/19 18:35 Pulse Oximetry 95 03/23/19 18:35 GENERAL: Well-appearing, well-nourished and in no acute distress. HEENT: Head atraumatic,EOMI, pupils reactive, face symmetric, moist mucous membranes CARDIOVASCULAR: Regular rate and rhythm without murmurs, rubs or gallops. RESPIRATORY: Breath sounds equal bilaterally, no wheezes rales or rhonchi. ABDOMEN: Soft, nontender. Normoactive bowel sounds all 4 quadrants. No guarding or rebound. EXTREMITIES: Normal range of motion, no clubbing or edema. Neurovascularly intact NEUROLOGICAL: Alert and oriented x4.Normal gait and speech. Cranial nerves II through XII grossly intact. Good [id number] good heel to juárez slight decreased sensation to light touch on the right side however to sharp and dull he has full sensation. Equally but does say the right side feels different than the left. No aphasia and no dysarthria. SKIN: Warm, dry, no laceration, no petechiae, no rashes or lesions. Scores NIH Stroke Scale Level of Conciousness: Alert, keenly responsive Ask month/age: Answers both questions correctly. Open/close eyes, close hand: Performs both tasks correctly Best gaze horizontal: Normal Visual correa: No visual loss Facial palsy: Normal symetrical movement Left arm drift: No drift for full 10 sec Right arm drift: No drift for full 10 sec Left leg drift: No drift for full 10 sec Right leg drift: No drift for full 10 sec Limb ataxia: Absent Sensory on face/arms/legs: Mild to moderate sensory loss, can tell touch Best language: No aphasia, normal Dysarthria: Normal Extinction or inattention: No abnormality Total NIH Stroke scale score: 1 Course Orders Ordered: ED Orders 03/23/19 18:49 CT head/brain wo con Stat EKG-12 Lead Stat 03/23/19 18:55 Complete Blood Count AUTO DIFF Stat Comprehensive Metabolic Panel Stat Partial Thromboplastin Time Stat Prothrombin Time INR Stat Discontinued Medications Sodium Chloride (Normal Saline 0.9%) 1,000 mls @ 150 mls/hr IV CONT GUSTAVO Vital Signs - 8 hr 03/23/19 18:35 03/23/19 20:08 Temperature 97.7 F Pulse Rate 98 H 93 H Respiratory Rate 18 16 Blood Pressure 138/86 Blood Pressure [Right Arm] 124/72 Pulse Oximetry 95 98 MDM - Neuro Symptoms/Deficit Lab Data Attestation: I reviewed the patient's lab results. Result diagrams: 03/23/19 18:55 03/23/19 18:55 Lab Results 03/23/19 03/23/19 03/23/19 Range/Units 18:55 18:55 18:55 WBC 12.8 H (4.5-11.0) X10^3/uL RBC 5.02 (4.5-5.9) X10^6/uL Hgb 15.0 (13.5-17.5) g/dL Hct 44.2 (41-53) % MCV 87.9 (80-100) fL MCH 29.9 (26-34) PG MCHC 34.1 (30-36) % RDW 13.2 (11.6-14.8) % Plt Count 225 (150-400) X10^3/uL Neut % (Auto) 72.1 (50-75) % Lymph % (Auto) 21.2 L (25-40) % [place] % (Auto) 5.5 (3-14) % Eos % (Auto) 0.7 L (2-4) % Baso % (Auto) 0.5 (0-2) % Neut # (Auto) 9200 H (2978-4725) /uL Lymph # (Auto) 2700 (4365-4965) /uL [place] # (Auto) 700 (0-900) /uL Eos # (Auto) 100 (0-450) /uL Baso # (Auto) 100 (0-100) /uL PT 11.8 (10.1-12.7) SECONDS INR 1.0 (0.9-1.3) APTT 33 D (26.4-36.2) SECONDS Sodium 140 (137-145) mmol/L Potassium 4.4 (3.4-5.1) mmol/L Chloride 104 (98-107) mmol/L Carbon Dioxide 27 (22-32) mmol/L BUN 15 (9-20) mg/dL Creatinine 0.90 (0.66-1.25) mg/dL Estimated GFR > 60.0 (>60) mL/min BUN/Creatinine Ratio 16.7 (6-22) Glucose 113 H (70-100) mg/dL Calcium 9.8 (8.4-10.2) mg/dL Total Bilirubin 0.7 (0.2-1.3) mg/dL AST 36 (17-59) IU/L ALT 38 (21-72) IU/L Alkaline Phosphatase 61 (38-126) U/L Total Protein 7.9 (6.3-8.2) g/dL Albumin 4.7 (3.5-5.0) g/dL Globulin 3.2 (1.7-4.1) g/dL Albumin/Globulin Ratio 1.5 (1.0-2.8) Point of Care Testing Glucose POC [address] scan - head: Radiologist's impression: PROCEDURE: CT HEAD/BRAIN WO CON INDICATIONS: right sided numbness TECHNIQUE: Noncontrast 4.5 mm thick angled axial sections acquired from the foramen magnum to the vertex, with coronal and sagittal reformats. For radiation dose reduction, the following was used: automated exposure control, adjustment of mA and/or kV according to patient size. COMPARISON: None. FINDINGS: Image quality: Excellent. CSF spaces: Basal cisterns are patent. No extra-axial fluid collections. Ventricles are normal in size and shape. Brain: No midline shift. No intracranial masses or hemorrhage. [place]-white matter interface is normal. Skull and face: Calvarium and visualized facial bones are intact, without suspicious lesions. Sinuses: Visualized sinuses and mastoids are clear. IMPRESSION: 1. No acute intracranial abnormalities. Dictated by: Megan Patel M.D. on 03/23/2019 at 19:08 ECG Data Attestation: I personally reviewed and interpreted this ECG as follows: Prior ECG tracings: available for review Interpretation: Sinus rhythm rate [address] changes no T-wave inversions appear interval 136 MDM Narrative Medical decision making narrative: Patient's symptoms seem to be improving. Patient's symptoms are not really convincing for TIA. Initially said he could not feel in his right lower leg however he can't definitely tell a difference between sharp and dull sensations. Discharge Plan Departure Patient Disposition: Home Clinical Impression: Arm paresthesia, right Discharge Date/Time: 03/23/19 20:50 Interventions: ED Discharge Assessment Last Done: 03/23/19 21:16 Instructions: DI for Transient Ischemic Attack Activity Restrictions/Additional Instructions: *You have been diagnosed with tingling of right arm *What to do: At this time you likely did not have a stroke or mini-stroke head CT is negative blood work reassuring. *Continue to take medications as directed *Follow up with your primary care provider in 2-3 days *Return to ER if you should have weakness in arms legs difficulty speaking facial droop or any new, worsening or concerning symptoms Prescriptions: No Action clonazepam 1 mg tablet 1 mg PO BIDP PRN (Reason: anxiety) Qty: 60 RF: 5 loratadine [Claritin] 10 mg tablet 10 mg PO DAILY Qty: 90 RF: 3 montelukast [Singulair] 10 mg tablet 10 mg PO QPM Qty: 90 RF: 3 lamotrigine [Lamictal] 100 mg tablet 200 mg PO DAILY Qty: 60 RF: 1 dextroamphetamine-amphetamine 20 mg capsule,extended release 24hr 20 mg PO BID Qty: 60 RF: 0 trazodone 50 mg tablet 50 mg PO BEDTIME RF: 0 ondansetron 4 mg tablet,disintegrating 4 mg PO Q6-8H PRN (Reason: nausea and vomiting) Qty: 10 RF: 0 Referrals: Ian Wang MD [Primary Care Provider] - Stand Alone Forms: Work Release Note
[2019-03-23 19:00] LABS: Add Manual Diff / Slide Review NO; Basophils Absolute Auto 100 /uL (0-100); Basophils Percent Auto 0.5 % (0-2); Eosinophils Absolute Auto 100 /uL (0-450); Eosinophils Percent Auto 0.7 % (2-4); Hematocrit 44.2 % (41-53); Lymphocytes Absolute Auto 2700 /uL (1100-4500); Lymphocytes Percent Auto 21.2 % (25-40); Mean Corpuscular HGB Conc 34.1 % (30-36); Mean Corpuscular Hemoglobin 29.9 PG (26-34); Mean Corpuscular Volume 87.9 fL (80-100); Monocytes Absolute Auto 700 /uL (0-900); Monocytes Percent Auto 5.5 % (3-14); Neutrophils Absolute Auto 9200 /uL (1500-7000); Neutrophils Percent Auto 72.1 % (50-75); Platelet Count 225 X10^3/uL (150-400); Red Blood Cell Count 5.02 X10^6/uL (4.5-5.9); Red Cell Distribution Width 13.2 % (11.6-14.8); White Blood Cell Count 12.8 X10^3/uL (4.5-11.0)
[2019-03-23 19:08] LABS: Prothrombin Time 11.8 SECONDS (10.1-12.7)
[2019-03-23 19:10] LABS: PTT Partial Thromboplastin Tim 33 SECONDS (26.4-36.2)
[2019-03-23 19:12] LABS: Alanine Aminotransferase 38 IU/L (21-72); Albumin 4.7 g/dL (3.5-5.0); Albumin Globulin Ratio 1.5 (1.0-2.8); Alkaline Phosphatase 61 U/L (38-126); Aspartate Aminotransferase 36 IU/L (17-59); BUN Creatinine Ratio 16.7 (6-22); Bilirubin Total 0.7 mg/dL (0.2-1.3); Blood Urea Nitrogen 15 mg/dL (9-20); Calcium 9.8 mg/dL (8.4-10.2); Carbon Dioxide 27 mmol/L (22-32); Chloride 104 mmol/L (98-107); Estimated Glomerular Filt Rate > 60.0 mL/min (>60); Globulin 3.2 g/dL (1.7-4.1); Glucose 113 mg/dL (70-100); Potassium 4.4 mmol/L (3.4-5.1); Sodium 140 mmol/L (137-145); Total Protein 7.9 g/dL (6.3-8.2)
[2019-03-23 19:14] LABS: HEMOLYSIS 66 (0-50)
[2019-03-23 20:08] VITALS: BP 124/72; PULSE 93; RESP 16; O2SAT 98
== END 2019-03-23 20:50 | disposition home or self-care (01) ==
PROVIDERS: Emergency Provider Emergency Medicine; PCP Student in an Organized Health Care Education/Training Program
DX: R20.2 Paresthesia of skin (principal); R06.82 Tachypnea, not elsewhere classified
CPT/HCPCS: 36591; 70450; 80053; 82962; 85025; 85610; 85730; 93005; 99282; 99285

== ENCOUNTER → 2019-07-04 10:46 | Outpatient (CLI) | payer OTHER, MEDICAID, SELFPAY ==
--- NOTE | 2019-07-04 10:48 | DI.RAD.S_ITS ---
PROCEDURE: XR HAND LT MIN 3V INDICATIONS: Crush injury to distal phalanx of 1st digit;r/o fx TECHNIQUE: 3 views of the hand(s) acquired. COMPARISON: [facility], CR, WRIST MINIMUM 3 VIEWS LEFT, 07/13/2016, 16:45. [facility], CR, FINGERS 2VW (LT), 02/02/2015, 11:28. FINDINGS: Bones: No displaced fractures or dislocations are identified. No suspicious osseous lesions are evident. Please note that there is a ring that partially obscures evaluation of the proximal phalanx of the 4th digit on the frontal and oblique images and obscures evaluation of the 2nd through 5th proximal phalanges on the lateral view. If there is clinical concern for abnormalities involving these structures, please consider removing the brain and repeating this study. Soft tissues: No suspicious soft tissue calcifications. IMPRESSION: No acute osseous abnormality of the left hand is appreciated with limitations as described. Dictated by: Larry Harper M.D. on 07/04/2019 at 10:17 Approved by: Larry Harper M.D. on 07/04/2019 at 10:19
== END ==
PROVIDERS: Family Provider Student in an Organized Health Care Education/Training Program; PCP Student in an Organized Health Care Education/Training Program; Visit Provider Physician Assistant
DX: S60.012A Contusion of left thumb without damage to nail, initial encounter (principal); X58.XXXA Exposure to other specified factors, initial encounter
CPT/HCPCS: 73130

== ENCOUNTER → 2020-02-17 13:02 | Outpatient (CLI) | payer OTHER, MEDICAID, SELFPAY ==
[2020-02-17 14:58] LABS: Add Manual Diff / Slide Review NO; Basophils Absolute Auto 100 /uL (0-100); Basophils Percent Auto 0.5 % (0-2); Eosinophils Absolute Auto 100 /uL (0-450); Eosinophils Percent Auto 0.5 % (2-4); Hematocrit 41.7 % (41-53); Hemoglobin 14.2 g/dL (13.5-17.5); Lymphocytes Absolute Auto 2900 /uL (1100-4500); Lymphocytes Percent Auto 26.1 % (25-40); Mean Corpuscular HGB Conc 34.1 % (30-36); Mean Corpuscular Hemoglobin 29.8 PG (26-34); Mean Corpuscular Volume 87.3 fL (80-100); Monocytes Absolute Auto 600 /uL (0-900); Monocytes Percent Auto 5.5 % (3-14); Neutrophils Absolute Auto 7500 /uL (1500-7000); Neutrophils Percent Auto 67.4 % (50-75); Platelet Count 218 X10^3/uL (150-400); Red Blood Cell Count 4.78 X10^6/uL (4.5-5.9); Red Cell Distribution Width 13.2 % (11.6-14.8); White Blood Cell Count 11.2 X10^3/uL (4.5-11.0)
[2020-02-17 14:59] LABS: Alanine Aminotransferase 31 IU/L (<50); Albumin 4.5 g/dL (3.5-5.0); Albumin Globulin Ratio 1.4 (1.0-2.8); Alkaline Phosphatase 67 U/L (38-126); Aspartate Aminotransferase 32 IU/L (17-59); Bilirubin Total 0.4 mg/dL (0.2-1.3); Blood Urea Nitrogen 9 mg/dL (9-20); Calcium 9.6 mg/dL (8.4-10.2); Carbon Dioxide 24 mmol/L (22-32); Chloride 104 mmol/L (98-107); Cholesterol 187 mg/dL (140-199); Estimated Glomerular Filt Rate > 60.0 mL/min (>60); Globulin 3.2 g/dL (1.7-4.1); Glucose 85 mg/dL (70-100); HDL Cholesterol 32 mg/dL (40-60); HEMOLYSIS < 15 (0-50); LDL Cholesterol Calculated 133 mg/dL (<100); Potassium 3.7 mmol/L (3.4-5.1); Sodium 138 mmol/L (137-145); Total Protein 7.7 g/dL (6.3-8.2); Triglycerides 111 mg/dL (35-150)
[2020-02-17 15:15] LABS: Prolactin 32.5 ng/mL (3.7-17.9)
[2020-02-17 15:27] LABS: Iron 86 ug/dL (49-181)
[2020-02-17 15:48] LABS: Vitamin B12 796 pg/mL (239-931)
[2020-02-17 15:59] LABS: TSH w/ Reflex to FT4 2.41 uIU/mL (0.47-4.68)
[2020-02-17 16:04] LABS: Folate 13.3 ng/mL (2.76-20.0)
[2020-02-17 17:11] LABS: Vitamin D 25 Hydroxy (D3) 27.6 ng/mL (30.0-100.0)
== END ==
PROVIDERS: Family Provider Student in an Organized Health Care Education/Training Program; PCP Student in an Organized Health Care Education/Training Program; Referring Provider Student in an Organized Health Care Education/Training Program; Visit Provider Student in an Organized Health Care Education/Training Program
DX: S06.9X9A Unspecified intracranial injury with loss of consciousness of unspecified duration, initial encounter (principal)
CPT/HCPCS: 36415; 80053; 80061; 82306; 82607; 82746; 83540; 84146; 84443; 85025; 93005

== ENCOUNTER → 2020-10-20 11:46 | Outpatient (CLI) | payer OTHER, MEDICAID, SELFPAY ==
[2020-10-21 07:39] LABS: Valproic Acid (Depakene) Total 59 ug/mL (50-100)
== END ==
PROVIDERS: Family Provider Student in an Organized Health Care Education/Training Program; PCP Student in an Organized Health Care Education/Training Program; Visit Provider Psychiatry & Neurology Psychiatry
DX: F31.81 Bipolar II disorder (principal)
CPT/HCPCS: 36415; 80164

== ENCOUNTER → 2020-12-15 11:41 | Outpatient (CLI) | payer OTHER, MEDICAID, SELFPAY ==
[2020-12-15] MEDS: COVID-19 VACC #1, MRNA(MOD) 100 MCG/0.5 ML VIAL IM (12:10)
== END ==
PROVIDERS: Family Provider Student in an Organized Health Care Education/Training Program; PCP Student in an Organized Health Care Education/Training Program; Visit Provider Internal Medicine
DX: Z23 Encounter for immunization (principal)
CPT/HCPCS: 0011A; 91301

== ENCOUNTER → 2021-01-12 12:56 | Outpatient (CLI) | payer OTHER, MEDICAID, SELFPAY ==
[2021-01-12] MEDS: COVID-19 VACC #2, MRNA(MOD) 100 MCG/0.5 ML VIAL IM (13:12)
== END ==
PROVIDERS: Family Provider Student in an Organized Health Care Education/Training Program; PCP Student in an Organized Health Care Education/Training Program; Visit Provider Internal Medicine
DX: Z23 Encounter for immunization (principal)
CPT/HCPCS: 0012A; 91301

== ENCOUNTER → 2021-04-05 10:59 | Outpatient (CLI) | payer OTHER, MEDICAID, SELFPAY ==
[2021-04-05 11:46] LABS: Add Manual Diff / Slide Review NO; Basophils Absolute Auto 100 /uL (0-100); Eosinophils Absolute Auto 100 /uL (0-450); Eosinophils Percent Auto 1.6 % (2-4); Hematocrit 39.9 % (41-53); Hemoglobin 13.6 g/dL (13.5-17.5); Lymphocytes Absolute Auto 2300 /uL (1100-4500); Lymphocytes Percent Auto 35.2 % (25-40); Mean Corpuscular Hemoglobin 29.8 PG (26-34); Mean Corpuscular Volume 87.5 fL (80-100); Monocytes Absolute Auto 600 /uL (0-900); Monocytes Percent Auto 9.6 % (3-14); Neutrophils Absolute Auto 3400 /uL (1500-7000); Neutrophils Percent Auto 52.6 % (50-75); Platelet Count 159 X10^3/uL (150-400); Red Blood Cell Count 4.56 X10^6/uL (4.5-5.9); Red Cell Distribution Width 13.5 % (11.6-14.8); White Blood Cell Count 6.4 X10^3/uL (4.5-11.0)
[2021-04-05 12:25] LABS: Alanine Aminotransferase 205 IU/L (<50); Albumin 3.6 g/dL (3.5-5.0); Albumin Globulin Ratio 1.3 (1.0-2.8); Alkaline Phosphatase 53 U/L (38-126); Aspartate Aminotransferase 105 IU/L (17-59); Bilirubin Total 0.2 mg/dL (0.2-1.3); Bilirubin Unconjugated 0.2 mg/dL (0.0-1.1); Globulin 2.8 g/dL (1.7-4.1); HEMOLYSIS < 15 (0-50); Total Protein 6.4 g/dL (6.3-8.2)
[2021-04-05 12:42] LABS: Vitamin D 25 Hydroxy (D3) 40.8 ng/mL (30.0-100.0)
[2021-04-05 13:30] LABS: Folate 12.9 ng/mL (2.76-20.0); Vitamin B12 796 pg/mL (239-931)
[2021-04-08 15:36] LABS: Vitamin B1 166.3 nmol/L (66.5-200.0)
== END ==
PROVIDERS: Family Provider Student in an Organized Health Care Education/Training Program; PCP Student in an Organized Health Care Education/Training Program; Referring Provider Student in an Organized Health Care Education/Training Program; Visit Provider Student in an Organized Health Care Education/Training Program
DX: E55.9 Vitamin D deficiency, unspecified (principal); F68.8 Other specified disorders of adult personality and behavior; Z79.899 Other long term (current) drug therapy
CPT/HCPCS: 36415; 80076; 82306; 82607; 82746; 84425; 85025

== ENCOUNTER → 2023-07-02 12:22 | Outpatient (CLI) | payer OTHER, MEDICAID, SELFPAY ==
[2023-07-02 14:03] LABS: Influenza A - CEPHEID Flu A NEGATIVE (NEGATIVE); Influenza B - CEPHEID Flu B NEGATIVE (NEGATIVE); Respiratory Syncytial Virus Negative (Negative)
[2023-07-02 14:04] LABS: COVID-19 CEPHEID 4-PLEX PCR Negative (Negative)
== END ==
PROVIDERS: Family Provider Student in an Organized Health Care Education/Training Program; Visit Provider Physician Assistant
DX: R05.1 Acute cough (principal)
CPT/HCPCS: 0241U

== ENCOUNTER → 2023-08-25 12:45 | Outpatient (CLI) | payer OTHER, MEDICAID, SELFPAY ==
[2023-08-25 13:24] LABS: Add Manual Diff / Slide Review NO; Basophils Absolute Auto 0 /uL (0-100); Basophils Percent Auto 0.1 % (0-2); Eosinophils Absolute Auto 0 /uL (0-450); Hematocrit 43.6 % (41-53); Lymphocytes Absolute Auto 2200 /uL (1100-4500); Lymphocytes Percent Auto 28.6 % (25-40); Mean Corpuscular HGB Conc 34.4 % (30-36); Mean Corpuscular Hemoglobin 30.1 PG (26-34); Mean Corpuscular Volume 87.3 fL (80-100); Monocytes Absolute Auto 700 /uL (0-900); Monocytes Percent Auto 8.6 % (3-14); Neutrophils Absolute Auto 4800 /uL (1500-7000); Neutrophils Percent Auto 62.7 % (50-75); Platelet Count 233 X10^3/uL (150-400); Red Cell Distribution Width 13.4 % (11.6-14.8); White Blood Cell Count 7.6 X10^3/uL (4.5-11.0)
[2023-08-25 15:51] LABS: Alanine Aminotransferase 44 IU/L (<50); Albumin 4.5 g/dL (3.5-5.0); Albumin Globulin Ratio 1.3 (1.0-2.8); Alkaline Phosphatase 69 U/L (38-126); Aspartate Aminotransferase 52 IU/L (17-59); BUN Creatinine Ratio 15.9 (6-22); Blood Urea Nitrogen 14 mg/dL (9-20); Calcium 10.4 mg/dL (8.4-10.2); Carbon Dioxide 24 mmol/L (22-32); Chloride 105 mmol/L (98-107); Cholesterol 246 mg/dL (140-199); Estimated Glomerular Filt Rate > 60 mL/min (>60); Globulin 3.6 g/dL (1.7-4.1); Glucose 87 mg/dL (70-100); HDL Cholesterol 36 mg/dL (40-60); HEMOLYSIS 47 (0-50); LDL Cholesterol Calculated 191 mg/dL (<100); Potassium 4.3 mmol/L (3.4-5.1); Sodium 138 mmol/L (137-145); Total Protein 8.1 g/dL (6.3-8.2); Triglycerides 96 mg/dL (35-150)
[2023-08-25 15:53] LABS: Hemoglobin A1C% w Est Avg Glu 5.4 % (4.0-6.0)
[2023-08-25 17:07] LABS: Thyroid Stimulating Hormone 2.18 uIU/mL (0.47-4.68)
[2023-08-27 18:19] LABS: HIV 1 & 2 Ab/Ag 4th Gen Combo NEGATIVE (NEGATIVE); Hep C Virus Ab w/Reflex Quant NEGATIVE s/c (NEGATIVE)
== END ==
PROVIDERS: Family Provider Student in an Organized Health Care Education/Training Program; PCP Family Medicine; Referring Provider Family Medicine; Visit Provider Family Medicine
DX: E78.5 Hyperlipidemia, unspecified (principal); R53.82 Chronic fatigue, unspecified; Z00.00 Encounter for general adult medical examination without abnormal findings
CPT/HCPCS: 36415; 80053; 80061; 83036; 84443; 85025; 86803; 87389

== ENCOUNTER 2024-08-20 06:35 | Emergency (ER) | payer OTHER, MEDICAID, SELFPAY ==
[2024-08-20 06:42] VITALS: BP 133/74; PULSE 88; RESP 16; TEMP 35.5; O2SAT 95; BMI 46.0
[2024-08-20 07:07] VITALS: PULSE 64; O2SAT 95
[2024-08-20 07:19] LABS: Add Manual Diff / Slide Review NO; Basophils Absolute Auto 0 /uL (0-100); Basophils Percent Auto 0.3 % (0-2); Eosinophils Absolute Auto 100 /uL (0-450); Eosinophils Percent Auto 1.1 % (2-4); Hematocrit 42.2 % (41-53); Hemoglobin 14.7 g/dL (13.5-17.5); Lymphocytes Absolute Auto 2800 /uL (1100-4500); Mean Corpuscular HGB Conc 34.9 % (30-36); Mean Corpuscular Volume 88.9 fL (80-100); Monocytes Absolute Auto 700 /uL (0-900); Monocytes Percent Auto 7.9 % (3-14); Neutrophils Absolute Auto 4800 /uL (1500-7000); Neutrophils Percent Auto 57.7 % (50-75); Platelet Count 214 X10^3/uL (150-400); Red Blood Cell Count 4.75 X10^6/uL (4.5-5.9); White Blood Cell Count 8.3 X10^3/uL (4.5-11.0)
--- NOTE | 2024-08-20 07:23 | ED.NAVMDI ---
HPI - Nausea/Vomiting/Diarrhea General Chief complaint: Nausea/Vomiting/Diarrhea Stated complaint: fatigue, d/n/v Time Seen by Provider: 08/20/24 06:38 Source: patient Mode of arrival: Ambulatory History of Present Illness HPI Narrative: Patient is a 39-year-old male who is here for evaluation of 3 days of nausea vomiting and multiple episodes of diarrhea. No recent travel. No recent antibiotics. He states he was tried DayQuil/NyQuil and Tums. He states he was not currently nauseous but he did throw up in the rate to the emergency department. No blood in his stool. He states his stomach just feels uneasy but no specific discomfort. No urinary symptoms. Related Data Home Medications Medication Instructions Recorded Confirmed atorvastatin 40 mg tablet 40 mg PO DAILY 02/29/24 08/19/24 clonidine HCl 0.3 mg tablet 0.3 mg PO DAILY 02/29/24 08/19/24 Previous Rx's Medication Instructions Recorded pantoprazole 20 mg tablet,delayed 20 mg PO QDAY #30 tabs 09/27/16 release fluticasone propionate 50 1 spray intranasal DAILY #16 grams 01/31/22 mcg/actuation nasal spray,suspension loratadine 10 mg tablet (Claritin) 10 mg PO DAILY #90 tabs 01/31/22 montelukast 10 mg tablet 10 mg PO QPM #90 tabs 01/31/22 (Singulair) divalproex 500 mg tablet,extended 500 mg PO BID #60 tabs 05/01/24 release 24 hr duloxetine 30 mg capsule,delayed 30 mg PO DAILY #60 caps 06/17/24 release propranolol 20 mg tablet 20 mg PO DAILY PRN for anxiety #90 06/19/24 tabs methocarbamol 750 mg tablet 750 mg PO BID #60 tabs 08/12/24 dextroamphetamine-amphetamine 30 30 mg PO BID ADHD #60 tabs 08/14/24 mg tablet (Adderall) risperidone 4 mg tablet 4 mg PO BEDTIME #30 tabs 08/15/24 ketorolac 10 mg tablet 10 mg PO Q6H #20 tabs 08/19/24 ondansetron 4 mg disintegrating 4 mg PO Q6H PRN nausea and 08/20/24 tablet vomiting #10 tabs Allergies Allergy/AdvReac Type Severity Reaction Status Date / Time tuberculin, purified protein Allergy Mild skin Verified 08/19/24 11:24 deriva irritation, rash Review of Systems Review of Systems Narrative: See HPI Patient History Medical History Scheuermann's disease Seasonal allergies History of bipolar disorder Plantar fasciitis ADHD Surgical History No pertinent past surgical history Family History Family/Other Stroke Heart attack Social History Smoking Status: Current every day smoker Tobacco: How many years used: 20 Smoking Status: Current every day smoker alcohol intake frequency: 0-2 drinks per day Exam Initial Vital Signs Initial Vital Signs: Vital Signs Temperature 96 F L 08/20/24 06:42 Pulse Rate 88 08/20/24 06:42 Respiratory Rate 16 08/20/24 06:42 Blood Pressure 133/74 08/20/24 06:42 Pulse Oximetry 95 08/20/24 06:42 Oxygen Delivery Method Room Air 08/20/24 06:42 Const General: cooperative, comfortable and No ill appearing HENMT Head: normal to inspection and normocephalic Resp Effort & Inspection: normal respiratory effort Auscultation: clear to auscultation bilaterally Cardio Rate: regular rate Rhythm: regular rhythm GI Inspection: normal to inspection and non-distended Palpation: soft, No firm, No guarding and No tender Skin General: no rashes or lesions noted Neuro General: patient alert, patient awake and patient oriented x3 Course Orders Ordered: ED Orders 08/20/24 07:04 CBC Auto Diff [Complete Blood Count AUTO DIFF] Stat CMP [Comprehensive Metabolic Panel] Stat Vital Signs Vital signs: Vital Signs - 8 hr 08/20/24 06:42 Temperature 96 F L Pulse Rate 88 Respiratory Rate 16 Blood Pressure 133/74 Pulse Oximetry 95 Oxygen Delivery Method Room Air MDM - Nausea/Vomiting/Diarrhea Lab Data Attestation: I reviewed the patient's lab results. 08/20/24 07:04 08/20/24 07:04 Labs: Lab Results 08/20/24 Range/Units 07:04 WBC 8.3 (4.5-11.0) X10^3/uL RBC 4.75 (4.5-5.9) X10^6/uL Hgb 14.7 (13.5-17.5) g/dL Hct 42.2 (41-53) % MCV 88.9 (80-100) fL MCH 31.0 (26-34) PG MCHC 34.9 (30-36) % RDW 13.0 (11.6-14.8) % Plt Count 214 (150-400) X10^3/uL Neut % (Auto) 57.7 (50-75) % Lymph % (Auto) 33.0 (25-40) % [place] % (Auto) 7.9 (3-14) % Eos % (Auto) 1.1 L (2-4) % Baso % (Auto) 0.3 (0-2) % Neut # (Auto) 4800 (5359-9978) /uL Lymph # (Auto) 2800 (0219-3537) /uL [place] # (Auto) 700 (0-900) /uL Eos # (Auto) 100 (0-450) /uL Baso # (Auto) 0 (0-100) /uL Sodium 137 (137-145) mmol/L Potassium 3.4 (3.4-5.1) mmol/L Chloride 105 (98-107) mmol/L Carbon Dioxide 25 (22-32) mmol/L BUN 11 (9-20) mg/dL Creatinine 0.85 (0.66-1.25) mg/dL Estimated GFR > 60 (>60) mL/min BUN/Creatinine Ratio 12.9 (6-22) Glucose 144 H (70-100) mg/dL Calcium 9.3 (8.4-10.2) mg/dL Total Bilirubin 0.4 (0.2-1.3) mg/dL AST 35 (17-59) IU/L ALT 41 (<50) IU/L Alkaline Phosphatase 59 (38-126) U/L Total Protein 6.9 (6.3-8.2) g/dL Albumin 4.1 (3.5-5.0) g/dL Globulin 2.8 (1.7-4.1) g/dL Albumin/Globulin Ratio 1.5 (1.0-2.8) MDM Narrative Medical decision making narrative: Patient appears well. Benign abdominal exam. Unremarkable labs. No recent travel. No recent antibiotics. No indication for antibiotics. He was well hydrated. He was tolerating oral intake. Will discharge home with a prescription for nausea medicine and instructions that he can take antidiarrheal medicines if needed. He was given return precautions. He expressed understanding and agreement. Discharge Plan Departure Patient Disposition: Home Clinical Impression: Diarrhea, Nausea and vomiting Instructions: Diarrhea, Nausea and Vomiting-Adult Activity Restrictions/Additional Instructions: Continue to take all of your medications as directed. I recommend that you are trying to increase her fluid intake by drinking small amounts frequently. He was a nausea medication as needed. Return to the emergency department for new symptoms. You can consider taking a medicine called Imodium/loperamide which can be purchased [id number] to try to help with the diarrhea. Prescriptions: New ondansetron 4 mg tablet,disintegrating 4 mg PO Q6H PRN (Reason: nausea and vomiting) Qty: 10 0RF No Action atorvastatin 40 mg tablet 40 mg PO DAILY clonidine HCl 0.3 mg tablet 0.3 mg PO DAILY ketorolac 10 mg tablet 10 mg PO Q6H Qty: 20 1RF Rx Instructions: maximum total duration of 5 days from all oral, intranasal, or parenteral formulations divalproex 500 mg tablet extended release 24 hr 500 mg PO BID Qty: 60 2RF duloxetine 30 mg capsule,delayed release(DR/EC) 30 mg PO DAILY Qty: 60 2RF pantoprazole 20 mg tablet,delayed release (DR/EC) 20 mg PO QDAY Qty: 30 2RF propranolol 20 mg tablet 20 mg PO DAILY PRN (Reason: for anxiety) Qty: 90 3RF methocarbamol 750 mg tablet 750 mg PO BID Qty: 60 1RF dextroamphetamine-amphetamine [Adderall] 30 mg tablet 30 mg PO BID Qty: 60 0RF risperidone 4 mg tablet 4 mg PO BEDTIME Qty: 30 2RF montelukast [Singulair] 10 mg tablet 10 mg PO QPM Qty: 90 3RF loratadine [Claritin] 10 mg tablet 10 mg PO DAILY Qty: 90 3RF fluticasone propionate 50 mcg/actuation spray,suspension 1 spray NASAL DAILY Qty: 16 11RF Referrals: García Alcantara MD [Primary Care Provider] - Stand Alone Forms: Patient Portal/API/Survey
[2024-08-20 07:29] LABS: Alanine Aminotransferase 41 IU/L (<50); Albumin 4.1 g/dL (3.5-5.0); Albumin Globulin Ratio 1.5 (1.0-2.8); Alkaline Phosphatase 59 U/L (38-126); Aspartate Aminotransferase 35 IU/L (17-59); BUN Creatinine Ratio 12.9 (6-22); Bilirubin Total 0.4 mg/dL (0.2-1.3); Blood Urea Nitrogen 11 mg/dL (9-20); Calcium 9.3 mg/dL (8.4-10.2); Carbon Dioxide 25 mmol/L (22-32); Chloride 105 mmol/L (98-107); Estimated Glomerular Filt Rate > 60 mL/min (>60); Globulin 2.8 g/dL (1.7-4.1); Glucose 144 mg/dL (70-100); HEMOLYSIS < 15 (0-50); Potassium 3.4 mmol/L (3.4-5.1); Sodium 137 mmol/L (137-145); Total Protein 6.9 g/dL (6.3-8.2)
[2024-08-20 07:30] VITALS: BP 118/78; PULSE 66; O2SAT 95
[2024-08-20 08:00] VITALS: BP 119/73; PULSE 61; O2SAT 95
[2024-08-20 08:40] VITALS: BP 124/84; PULSE 64; O2SAT 98
== END 2024-08-20 08:43 | disposition home or self-care (01) ==
PROVIDERS: Emergency Medicine; Emergency Provider Emergency Medicine; PCP Family Medicine
DX: R11.2 Nausea with vomiting, unspecified (principal); R19.7 Diarrhea, unspecified
CPT/HCPCS: 36415; 80053; 85025; 99281; 99283

== ENCOUNTER → 2024-10-21 12:07 | Outpatient (CLI) | payer OTHER, SELFPAY ==
[2024-10-21 13:09] LABS: Add Manual Diff / Slide Review NO; Basophils Absolute Auto 0 /uL (0-100); Basophils Percent Auto 0.2 % (0-2); Eosinophils Absolute Auto 100 /uL (0-450); Eosinophils Percent Auto 0.8 % (2-4); Hematocrit 43.2 % (41-53); Hemoglobin 14.6 g/dL (13.5-17.5); Lymphocytes Absolute Auto 2900 /uL (1100-4500); Mean Corpuscular HGB Conc 33.8 % (30-36); Mean Corpuscular Hemoglobin 30.4 PG (26-34); Mean Corpuscular Volume 89.7 fL (80-100); Monocytes Absolute Auto 700 /uL (0-900); Monocytes Percent Auto 8.1 % (3-14); Neutrophils Absolute Auto 5100 /uL (1500-7000); Neutrophils Percent Auto 57.9 % (50-75); Platelet Count 235 X10^3/uL (150-400); Red Blood Cell Count 4.82 X10^6/uL (4.5-5.9); Red Cell Distribution Width 13.7 % (11.6-14.8); White Blood Cell Count 8.9 X10^3/uL (4.5-11.0)
[2024-10-21 13:38] LABS: Alanine Aminotransferase 32 IU/L (<50); Albumin 4.5 g/dL (3.5-5.0); Albumin Globulin Ratio 1.7 (1.0-2.8); Alkaline Phosphatase 57 U/L (38-126); Aspartate Aminotransferase 31 IU/L (17-59); BUN Creatinine Ratio 13.7 (6-22); Bilirubin Total 0.6 mg/dL (0.2-1.3); Blood Urea Nitrogen 10 mg/dL (9-20); Calcium 9.8 mg/dL (8.4-10.2); Carbon Dioxide 22 mmol/L (22-32); Chloride 106 mmol/L (98-107); Cholesterol 199 mg/dL (140-199); Estimated Glomerular Filt Rate > 60 mL/min (>60); Globulin 2.6 g/dL (1.7-4.1); Glucose 78 mg/dL (70-100); HDL Cholesterol 36 mg/dL (40-60); HEMOLYSIS < 15 (0-50); LDL Cholesterol Calculated 145 mg/dL (<100); Potassium 4.1 mmol/L (3.4-5.1); Sodium 138 mmol/L (137-145); Total Protein 7.1 g/dL (6.3-8.2); Triglycerides 92 mg/dL (35-150)
[2024-10-21 14:14] LABS: Urine N gonorrhoeae NOT DETECTED
[2024-10-21 14:35] LABS: Urine Chlamydia NOT DETECTED
[2024-10-22 03:36] LABS: RPR Screen Non Reactive (Non Reactive)
[2024-10-23 15:24] LABS: HIV 1 & 2 Ab/Ag 4th Gen Combo NEGATIVE (NEGATIVE)
== END ==
PROVIDERS: PCP Family Medicine; Referring Provider Family Medicine; Visit Provider Family Medicine
DX: Z13.1 Encounter for screening for diabetes mellitus (principal); Z11.4 Encounter for screening for human immunodeficiency virus [HIV]; Z13.228 Encounter for screening for other metabolic disorders; Z11.3 Encounter for screening for infections with a predominantly sexual mode of transmission; Z13.220 Encounter for screening for lipoid disorders; R53.82 Chronic fatigue, unspecified; E66.01 Morbid (severe) obesity due to excess calories
CPT/HCPCS: 36415; 80053; 80061; 83036; 85025; 86592; 87389; 87491; 87591